=== PATIENT | female | born 1985 | race Caucasian/White ===

== ENCOUNTER 2018-03-05 05:43 | Emergency (ER) | payer SELFPAY ==
[2018-03-05] MEDS ORDERED: diphenhydrAMINE 50 MG/ML SDV IM ONE (06:12)
[2018-03-05] MEDS ORDERED: methylPREDNISolone Sodium Succinate 40 MG/1 ML SDV IM ONE (06:12)
--- NOTE | 2018-03-05 06:12 | EDM.PDOC ---
ED HPI GENERAL MEDICAL PROBLEM - General Chief Complaint: General Stated Complaint: ALERGIC REACTION Time Seen by Provider: 03/05/18 05:50 Source of Information: Reports: Patient History Limitations: Reports: No Limitations - History of Present Illness INITIAL COMMENTS - FREE TEXT/NARRATIVE: HISTORY AND PHYSICAL: History of present illness: 32-year-old female presenting to emergency department with chief complaint of lip and neck swelling that she believes is an allergic reaction starting last night. Patient states that last evening she noticed some swelling in her neck. Throughout the evening swelling got worse and involved her jaw as well as lower lip. Patient states that she was recently started on amoxicillin approximately 3 days ago. She has never had had a similar reaction in the past. She denies any respiratory distress. She is a smoker. Smokes half a pack a day for the past 8 years. Denies any chest pain, palpitations, shortness of breath, syncopal , or focal neurologic deficits. When questioned patient denies any allergy to a Z-Jay and states that she has had it multiple times. Exam there is mild swelling to the anterior aspect of the neck extending into the lower jawline. There is also swelling of the lower lip. No swelling of tongue. Posterior pharynx is mildly erythematous. There is expiratory wheezing heard in all lung [place]. Oxygen is 99% on room air. Review of systems: As per history of present illness and below otherwise all systems reviewed and negative. Past medical history: As per history of present illness and as reviewed below otherwise noncontributory. Surgical history: As per history of present illness and as reviewed below otherwise noncontributory. Social history: No reported history of drug or alcohol abuse. Family history: As per history of present illness and as reviewed below otherwise noncontributory. Physical exam: HEENT: Atraumatic, normocephalic, pupils reactive, negative for conjunctival pallor or scleral icterus, mucous membranes moist, mild posterior erythema of throat, neck supple mildly swollen and tender, trachea midline. Lungs: Expiratory wheezing, breath sounds equal bilaterally, chest nontender. Heart: S1S2, regular, negative for clicks, rubs, or JVD. Abdomen: Soft, nondistended, nontender. Negative for masses or hepatosplenomegaly. Negative for costovertebral tenderness. Pelvis: Stable nontender. Genitourinary: Deferred. Rectal: Deferred. Extremities: Atraumatic, negative for cords or calf pain. Neurovascular unremarkable. Neuro: Awake, alert, oriented. Cranial nerves II through XII unremarkable. Cerebellum unremarkable. Motor and sensory unremarkable throughout. Exam nonfocal. Diagnostics: [] Therapeutics: 50 mg IM diphenhydramine, 40 mg IM Solu-Medrol, DuoNeb 1, prednisone 40 mg by mouth daily 4 days, azithromycin/Z-Jay 5 days Impression: Allergic drug reaction Plan: Patient most likely had a allergic reaction to amoxicillin as she denies any other recent drug use or exposures. Did instruct patient to quit the amoxicillin. We did give her 50 mg of IM diphenhydramine as well as 40 mg IM Solu-Medrol. I did also give the patient a prescription for prednisone 40 mg by mouth daily 4 days as well as a Z-Jay to finish treatment of her strep. She should follow-up with her primary care provider and return to emergency department if any new or worsening symptoms. Definitive disposition and diagnosis as appropriate pending reevaluation and review of above. facial Pain Score (Numeric/FACES): 5 - Related Data Allergies Allergy/AdvReac Type Severity Reaction Status Date / Time azithromycin Allergy Cannot Verified 03/05/18 06:00 Remember Home Meds: Home Meds Amoxicillin 03/05/18 [History] Past Medical History - Infectious Disease History Infectious Disease History: Reports: Chicken Pox - Past Surgical History GI Surgical History: Reports: Cholecystectomy Social & Family History - Tobacco Use Smoking Status *Q: Current Every Day Smoker Years of Tobacco use: 8 Packs/Tins Daily: 0.5 - Alcohol Use Days Per Week of Alcohol Use: 7 Number of Drinks Per Day: 2 Total Drinks Per Week: 14 - Recreational Drug Use Recreational Drug Use: No ED ROS GENERAL - Review of Systems Review Of Systems: ROS reveals no pertinent complaints other than HPI. ED EXAM, GENERAL - Physical Exam Exam: See Below Course - Vital Signs Last Recorded V/S: Last Vital Signs Temp 96.3 F 03/05/18 06:01 Pulse 110 H 03/05/18 06:01 Resp 20 03/05/18 06:01 BP 128/95 H 03/05/18 06:01 Pulse Ox 99 03/05/18 06:01 - Orders/Labs/Meds Orders: Active Orders 24 hr Category Date Time Status RT Aerosol Therapy [RC] ASDIRECTED Care 03/05/18 06:14 Active Meds: Medications Discontinued Medications Generic Name Dose Route Start Last Admin Trade Name Ranulfo PRN Reason Stop Dose Admin Albuterol/Ipratropium 3 ml 03/05/18 06:14 Duoneb 3.0-0.5 Mg/3 Ml NEB 03/05/18 06:15 ONETIME ONE Diphenhydramine HCl 50 mg 03/05/18 06:12 03/05/18 06:21 Benadryl IM 03/05/18 06:13 50 mg ONETIME ONE Administration Methylprednisolone Sodium Succinate 40 mg 03/05/18 06:12 03/05/18 06:22 Solu-Medrol IM 03/05/18 06:13 40 mg ONETIME ONE Administration Departure - Departure Time of Disposition: 06:29 Disposition: Home, Self-Care 01 Condition: Good Clinical Impression: Allergic reaction caused by a drug Qualifiers: Encounter type: initial encounter Qualified Code(s): T78.40XA - Allergy, unspecified, initial encounter - Discharge Information Referrals: PCP,None [Primary Care Provider] - Forms: ED Department Discharge Additional Instructions: My general discharge The following information is given to patients seen in the emergency department who are being discharged to home. This information is to outline your options for follow-up care. We provide all patients seen in our emergency department with a follow-up referral. The need for follow-up, as well as the timing and circumstances, are variable depending upon the specifics of your emergency department visit. If you don't have a primary care physician on staff, we will provide you with a referral. We always advise you to contact your personal physician following an emergency department visit to inform them of the circumstance of the visit and for follow-up with them and/or the need for any referrals to a consulting specialist. The emergency department will also refer you to a specialist when appropriate. This referral assures that you have the opportunity for follow-up care with a specialist. All of these measure are taken in an effort to provide you with optimal care, which includes your follow-up. Under all circumstances we always encourage you to contact your private physician who remains a resource for coordinating your care. When calling for follow-up care, please make the office aware that this follow-up is from your recent emergency room visit. If for any reason you are refused follow-up, please contact the [facility] Emergency Department at and asked to speak to the emergency department charge nurse. [facility] [address] [place] [id number] [facility] - [facility] [address] [place] [phone] Please call 1 of the above numbers to follow-up with a primary care provider. Be sure to tell them that he was seen in the emergency department and they wish for you to be seen as soon as possible. Take medication as prescribed. Take [id number] Benadryl in addition to prednisone to help with your symptoms. Return to emergency department if any new or worsening symptoms. - My Orders Last 24 Hours: My Active Orders 03/05/18 06:14 RT Aerosol Therapy [RC] ASDIRECTED - Assessment/Plan Last 24 Hours: My Active Orders 03/05/18 06:14 RT Aerosol Therapy [RC] ASDIRECTED
[2018-03-05] MEDS ORDERED: Albuterol/Ipratropium 3.0-0.5 MG/3 ML Neb Soln NEB ONE (06:14)
== END 2018-03-05 06:50 | disposition home or self-care (01) ==
LOC: MW.ED 05:43
DX: R22.1 Localized swelling, mass and lump, neck (principal); T36.0X5A Adverse effect of penicillins, initial encounter; F17.210 Nicotine dependence, cigarettes, uncomplicated; Z88.1 Allergy status to other antibiotic agents
CPT/HCPCS: 94640; 96372; 99283; J1200; J2920; J7620-GY

== ENCOUNTER 2018-03-07 14:34 | Emergency (ER) | payer SELFPAY ==
--- NOTE | 2018-03-07 15:04 | EDM.PDOC ---
ED HPI GENERAL MEDICAL PROBLEM - General Chief Complaint: General Stated Complaint: BLISTERS SORE IN MOUTH Time Seen by Provider: 03/07/18 14:39 Source of Information: Reports: Patient History Limitations: Reports: No Limitations - History of Present Illness INITIAL COMMENTS - FREE TEXT/NARRATIVE: History of present illness: []3 days ago patient was cleaning with a irritating chemical and developed swelling of her lips and neck. She was eventually placed on amoxicillin for this and had allergic reaction with increasing rash and swelling. 2 days ago she would return here and was changed to Zithromax. She is now complaining of urinating air mixed with brown urine. Patient denies any difficulty swallowing. Shortness of breath, chest, abdominal or pelvic pain Review of systems: As per history of present illness and below otherwise all systems reviewed and negative. Past medical history: As per history of present illness and as reviewed below otherwise noncontributory. Surgical history: As per history of present illness and as reviewed below otherwise noncontributory. Social history: No reported history of drug or alcohol abuse. Family history: As per history of present illness and as reviewed below otherwise noncontributory. Physical exam: General: Well developed, well nourished in NAD HEENT: Atraumatic, normocephalic, pupils reactive, negative for conjunctival pallor or scleral icterus, mucous membranes moist, throat clear, neck supple, nontender, trachea midline. Lungs: Clear to auscultation, breath sounds equal bilaterally, chest nontender. Heart: S1S2, regular, negative for clicks, rubs, or JVD. Abdomen: Soft, nondistended, nontender. Negative for masses or hepatosplenomegaly. Negative for costovertebral tenderness. Pelvis: Stable nontender. Genitourinary: Deferred. Rectal: Deferred. Extremities: Atraumatic, negative for cords or calf pain. Neurovascular unremarkable. Neuro: Awake, alert, oriented. Cranial nerves II through XII unremarkable. Cerebellum unremarkable. Motor and sensory unremarkable throughout. Exam nonfocal. Skin:warm and dry Diagnostics: CBC, chemistry, urine Therapeutics: IV fluids, IV Rocephin ED Course: Unremarkable Impression: UTI Prescriptions: Keflex Plan: Increase fluids take meds as directed follow-up with primary care return if symptoms worsen or change. Definitive disposition and diagnosis as appropriate pending reevaluation and review of above. body Pain Score (Numeric/FACES): 7 - Related Data Allergies Allergy/AdvReac Type Severity Reaction Status Date / Time clarithromycin [From Biaxin] Allergy Rash Verified 03/07/18 14:46 erythromycin base Allergy Cannot Verified 03/07/18 14:46 Remember Home Meds: Home Meds Azithromycin [Zithromax] 1 tab PO DAILY 03/07/18 [History] cephALEXin [Keflex] 500 mg PO Q8H #21 cap 03/07/18 [Rx] Past Medical History - Past Health History Medical/Surgical History: Denies Medical/Surgical History - Infectious Disease History Infectious Disease History: Reports: Chicken Pox - Past Surgical History GI Surgical History: Reports: Cholecystectomy Social & Family History - Family History Family Medical History: Noncontributory - Tobacco Use Smoking Status *Q: Current Every Day Smoker Years of Tobacco use: 8 Packs/Tins Daily: 0.5 - Caffeine Use Caffeine Use: Reports: Coffee, Energy Drinks, Soda, Tea - Alcohol Use Days Per Week of Alcohol Use: 3 Number of Drinks Per Day: 2 Total Drinks Per Week: 6 - Recreational Drug Use Recreational Drug Use: No ED ROS GENERAL - Review of Systems Review Of Systems: ROS reveals no pertinent complaints other than HPI. ED EXAM, GENERAL - Physical Exam Exam: See Below (See history of present illness) Course - Vital Signs Last Recorded V/S: Last Vital Signs Temp 98.3 F 03/07/18 14:41 Pulse 106 H 03/07/18 14:41 Resp 16 03/07/18 14:41 BP 131/107 H 03/07/18 14:41 Pulse Ox 96 03/07/18 14:41 - Orders/Labs/Meds Orders: Active Orders 24 hr Category Date Time Status CULTURE URINE [RM] Stat Lab 03/07/18 16:13 Ordered Sodium Chloride 0.9% [Saline Flush] Med 03/07/18 15:07 Active 10 ml FLUSH ASDIRECTED PRN Sodium Chloride 0.9% [Saline Flush] Med 03/07/18 15:07 Active 2.5 ml FLUSH ASDIRECTED PRN Saline Lock Insert [OM.PC] Stat Oth 03/07/18 15:07 Ordered Medication Orders Sodium Chloride (Saline Flush) 10 ml FLUSH ASDIRECTED PRN PRN Reason: Keep Vein Open Sodium Chloride (Saline Flush) 2.5 ml FLUSH ASDIRECTED PRN PRN Reason: Keep Vein Open Labs: Laboratory Tests 03/07/18 03/07/18 03/07/18 Range/Units 15:05 15:25 15:25 WBC 12.25 H (4.0-11.0) K/uL RBC 4.20 L (4.30-5.90) M/uL Hgb 13.3 (12.0-16.0) g/dL Hct 39.6 (36.0-46.0) % MCV 94.3 (80.0-98.0) fL MCH 31.7 (27.0-32.0) pg MCHC 33.6 (31.0-37.0) g/dL RDW Std Deviation 52.1 (28.0-62.0) fl RDW Coeff of Isaac 15 (11.0-15.0) % Plt Count 181 (150-400) K/uL MPV 10.40 (7.40-12.00) fL Neut % (Auto) 81.6 H (48.0-80.0) % Lymph % (Auto) 13.7 L (16.0-40.0) % [place] % (Auto) 4.4 (0.0-15.0) % Eos % (Auto) 0.2 (0.0-7.0) % Baso % (Auto) 0.1 (0.0-1.5) % Neut # (Auto) 10.0 H (1.4-5.7) K/uL Lymph # (Auto) 1.7 (0.6-2.4) K/uL [place] # (Auto) 0.5 (0.0-0.8) K/uL Eos # (Auto) 0.0 (0.0-0.7) K/uL Baso # (Auto) 0.0 (0.0-0.1) K/uL Nucleated RBC % 0.0 /100WBC Nucleated RBCs # 0 K/uL Sodium 141 (136-145) mmol/L Potassium 3.1 L (3.5-5.1) mmol/L Chloride 104 (98-107) mmol/L Carbon Dioxide 29.0 (21.0-32.0) mmol/L BUN 12 (7.0-18.0) mg/dL Creatinine 0.7 (0.6-1.0) mg/dL Est Cr Clr Drug Dosing 92.10 mL/min Estimated GFR (MDRD) > 60.0 ml/min Glucose 101 (74-106) mg/dL Calcium 8.6 (8.5-10.1) mg/dL Total Bilirubin 0.4 (0.2-1.0) mg/dL AST 16 (15-37) IU/L ALT 15 (14-63) IU/L Alkaline Phosphatase 98 (46-116) U/L Total Protein 7.1 (6.4-8.2) g/dL Albumin 3.5 (3.4-5.0) g/dL Globulin 3.6 H (2.0-3.5) g/dL Albumin/Globulin Ratio 1.0 L (1.3-2.8) Urine Color DARK YELLOW Urine Appearance CLOUDY Urine pH 6.0 (5.0-8.0) Ur Specific [place] >= 1.030 (1.001-1.035) Urine Protein 100 (NEGATIVE) mg/dL Urine Glucose (UA) NEGATIVE (NEGATIVE) mg/dL Urine Ketones TRACE H (NEGATIVE) mg/dL Urine Occult Blood LARGE H (NEGATIVE) Urine Nitrite POSITIVE H (NEGATIVE) Urine Bilirubin MODERATE H (NEGATIVE) Urine Ictotest NEGATIVE Urine Urobilinogen 1.0 (<2.0) EU/dL Ur Leukocyte Esterase SMALL (NEGATIVE) Urine RBC TOO NUMEROUS TO CT H (0-2/HPF) Urine WBC 25-35 (0-5/HPF) Ur Epithelial Cells FEW (NONE-FEW) Amorphous Sediment FEW (NEGATIVE) Urine Bacteria FEW (NEGATIVE) Meds: Medications Generic Name Dose Route Start Last Admin Trade Name Freq PRN Reason Stop Dose Admin Sodium Chloride 10 ml 03/07/18 15:07 Saline Flush FLUSH ASDIRECTED PRN Keep Vein Open Sodium Chloride 2.5 ml 03/07/18 15:07 Saline Flush FLUSH ASDIRECTED PRN Keep Vein Open Discontinued Medications Generic Name Dose Route Start Last Admin Trade Name Freq PRN Reason Stop Dose Admin Sodium Chloride 1,000 mls @ 999 mls/hr 03/07/18 15:07 03/07/18 15:46 Normal Saline IV 03/07/18 16:07 999 mls/hr .Bolus ONE Administration Ceftriaxone Sodium/Dextrose 1 50 mls @ 100 mls/hr 03/07/18 15:36 03/07/18 15: 46 gm/ Premix IV 03/07/18 16:05 100 mls/hr ONETIME ONE Administration Ketorolac Tromethamine 30 mg 03/07/18 15:36 03/07/18 15:46 Toradol IVPUSH 03/07/18 15:37 30 mg ONETIME ONE Administration Departure - Departure Time of Disposition: 16:14 Disposition: Home, Self-Care 01 Condition: Good Clinical Impression: UTI (urinary tract infection) Qualifiers: Urinary tract infection type: site unspecified Hematuria presence: with hematuria Qualified Code(s): N39.0 - Urinary tract infection, site not specified ; R31.9 - Hematuria, unspecified - Discharge Information *PRESCRIPTION DRUG MONITORING PROGRAM REVIEWED*: No *COPY OF PRESCRIPTION DRUG MONITORING REPORT IN PATIENT DRE: No Prescriptions: cephALEXin [Keflex] 500 mg PO Q8H #21 cap Referrals: PCP,None [Primary Care Provider] - Forms: ED Department Discharge Additional Instructions: The following information is given to patients seen in the emergency department who are being discharged to home. This information is to outline your options for follow-up care. We provide all patients seen in our emergency department with a follow-up referral. The need for follow-up, as well as the timing and circumstances, are variable depending upon the specifics of your emergency department visit. If you don't have a primary care physician on staff, we will provide you with a referral. We always advise you to contact your personal physician following an emergency department visit to inform them of the circumstance of the visit and for follow-up with them and/or the need for any referrals to a consulting specialist. The emergency department will also refer you to a specialist when appropriate. This referral assures that you have the opportunity for follow-up care with a specialist. All of these measure are taken in an effort to provide you with optimal care, which includes your follow-up. Under all circumstances we always encourage you to contact your private physician who remains a resource for coordinating your care. When calling for follow-up care, please make the office aware that this follow-up is from your recent emergency room visit. If for any reason you are refused follow-up, please contact the [facility] Emergency Department at and asked to speak to the emergency department charge nurse. Increase fluids take meds as directed follow-up primary care ibuprofen or Tylenol for pain return if symptoms worsen or change. [facility] [address] [place] [id number] - My Orders Last 24 Hours: My Active Orders 03/07/18 15:07 Sodium Chloride 0.9% [Saline Flush] 10 ml FLUSH ASDIRECTED PRN Sodium Chloride 0.9% [Saline Flush] 2.5 ml FLUSH ASDIRECTED PRN Saline Lock Insert [OM.PC] Stat 03/07/18 16:13 CULTURE URINE [RM] Stat - Assessment/Plan Last 24 Hours: My Active Orders 03/07/18 15:07 Sodium Chloride 0.9% [Saline Flush] 10 ml FLUSH ASDIRECTED PRN Sodium Chloride 0.9% [Saline Flush] 2.5 ml FLUSH ASDIRECTED PRN Saline Lock Insert [OM.PC] Stat 03/07/18 16:13 CULTURE URINE [RM] Stat
[2018-03-07] MEDS ORDERED: Sodium Chloride 0.9% 10 ML Syringe FLUSH PRN (15:07)
[2018-03-07] MEDS ORDERED: Sodium Chloride 0.9% 1,000 ML IV ONE (15:07)
[2018-03-07] MEDS ORDERED: Sodium Chloride 0.9% 2.5 ML Syringe FLUSH PRN (15:07)
[2018-03-07] MEDS ORDERED: cefTRIAXone 1 GM in Premix Bag 1 BAG IV ONE (15:36)
[2018-03-07] MEDS ORDERED: Ketorolac 30 MG/ML SDV IVPUSH ONE (15:36)
[2018-03-07 16:08] LABS: CHLORIDE,CL 104 mmol/L (98-107); SODIUM,NA 141 mmol/L (136-145)
== END 2018-03-07 17:00 | disposition home or self-care (01) ==
LOC: MW.ED 14:34
DX: N39.0 Urinary tract infection, site not specified (principal); F17.210 Nicotine dependence, cigarettes, uncomplicated; Z88.1 Allergy status to other antibiotic agents
CPT/HCPCS: 80053; 81001; 85025; 87086; 96365; 96375; 99283; J0696; J1885; J7040; 87088; 87186

== ENCOUNTER 2018-11-10 11:09 | Emergency (ER) | payer SELFPAY ==
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
[2018-11-10] MEDS ORDERED: Ketorolac 60 MG/2 ML SDV IM ONE (11:30)
--- NOTE | 2018-11-10 12:18 | CR ---
INDICATION: Injury and pain. TECHNIQUE: Chest 1 view COMPARISON: None FINDINGS: Cardiovascular and mediastinum: Heart size and vasculature are normal in caliber and appearance. Lungs and pleural spaces: Lungs are clear. No sign of infiltrate or mass. No sign of pleural effusion. No pneumothorax. Bones and soft tissues: No significant findings. IMPRESSION: No acute or significant findings. Dictated by Junior Wright MD @ Nov 10 2018 12:15PM Signed by Dr. Junior Wright @ Nov 10 2018 12:15PM
--- NOTE | 2018-11-10 12:18 | CR ---
INDICATION: Injury and pain TECHNIQUE: Cervical spine 3 view. COMPARISON: None FINDINGS: Bones: Cervical spine kyphosis is likely due to positioning. Alignment is otherwise normal. No fractures or significant bone lesions. Joints: Disc spaces and facets are unremarkable. Soft tissues: Unremarkable. IMPRESSION: Unremarkable cervical spine. Dictated by Junior Wright MD @ Nov 10 2018 12:15PM Signed by Dr. Junior Wright @ Nov 10 2018 12:16PM
== END 2018-11-10 12:30 | disposition home or self-care (01) ==
LOC: MW.ED 11:09
DX: T74.21XA Adult sexual abuse, confirmed, initial encounter (principal); Z88.1 Allergy status to other antibiotic agents; Z79.899 Other long term (current) drug therapy
CPT/HCPCS: 71045; 72040; 96372; 99284; J1885

== ENCOUNTER 2018-12-07 23:45 | Emergency (ER) | payer SELFPAY ==
[2018-12-08] MEDS ORDERED: HYDROmorphone 2 MG/ML Syringe ONE (00:03)
[2018-12-08] MEDS ORDERED: cefTRIAXone 1 GM in Premix Bag 1 BAG IV ONE (00:04)
[2018-12-08] MEDS ORDERED: Diphtheria,Pertussis(Acell),Tetanus Vaccine 0.5 ML Syringe IM ONE (00:04)
[2018-12-08] MEDS ORDERED: HYDROmorphone 1 MG/ML Syringe IVPUSH ONE (00:07)
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
[2018-12-08] MEDS ORDERED: fentaNYL 100 MCG/2 ML SDV IVPUSH ONE (00:14)
[2018-12-08] MEDS ORDERED: fentaNYL 100 MCG/2 ML SDV ONE (00:14)
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
[2018-12-08 00:45] LABS: CHLORIDE,CL 111 mmol/L (98-107); SODIUM,NA 144 mmol/L (136-145)
== END 2018-12-08 00:32 ==
LOC: MW.ED 23:45
DX: S72.301B Unspecified fracture of shaft of right femur, initial encounter for open fracture type I or II (principal); Z23 Encounter for immunization; Z88.1 Allergy status to other antibiotic agents; W22.8XXA Striking against or struck by other objects, initial encounter
CPT/HCPCS: 36415; 80053; 85025; 85610; 86850; 86900; 86901; 90471; 96365; 96375; 99291; G0480

== ENCOUNTER 2019-01-12 19:35 | Emergency (ER) | payer SELFPAY ==
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
[2019-01-12] MEDS ORDERED: Acetaminophen/oxyCODONE 325-7.5 MG Tab PO ONE (20:00)
[2019-01-12] MEDS ORDERED: Acetaminophen/oxyCODONE 325-10 MG Tab PO ONE (20:23)
== END 2019-01-12 20:30 | disposition home or self-care (01) ==
LOC: MW.ED 19:35
DX: Z76.0 Encounter for issue of repeat prescription (principal); F41.9 Anxiety disorder, unspecified; Z88.1 Allergy status to other antibiotic agents; Z79.811 Long term (current) use of aromatase inhibitors; Z79.899 Other long term (current) drug therapy
CPT/HCPCS: 99281; A9270

== ENCOUNTER 2019-04-04 18:11 | Emergency (ER) | payer SELFPAY ==
--- NOTE | 2019-04-04 19:30 | EDM.PDOC ---
ED HPI GENERAL MEDICAL PROBLEM - General Chief Complaint: Skin Complaint Stated Complaint: believes she may have been exposed to mrsa Time Seen by Provider: 04/04/19 18:37 Source of Information: Reports: Patient History Limitations: Reports: No Limitations - History of Present Illness INITIAL COMMENTS - FREE TEXT/NARRATIVE: HISTORY AND PHYSICAL: History of present illness: Patient is a 33-year-old female presents to the ED today with concern of generalized rash 2-3 days. Patient states the rash initially started as small spots on her forearms but now has spread to her lower extremities as well as her abdomen. Patient states the rash is itchy and she has tried putting topical Benadryl on the rash without relief of symptoms. Patient denies any other symptoms or concerns. Patient denies fever, chills, chest pain, shortness of breath, or cough. Denies headache, neck stiff ness, change in vision, syncope, or near syncope. Denies nausea, vomiting, abdominal pain, diarrhea, constipation, or dysuria. Has not noted any blood in urine or stool. Patient has been eating and drinking appropriately. Review of systems: As per history of present illness and below otherwise all systems reviewed and negative. Past medical history: As per history of present illness and as reviewed below otherwise noncontributory. Surgical history: As per history of present illness and as reviewed below otherwise noncontributory. Social history: See social history for further information Family history: As per history of present illness and as reviewed below otherwise noncontributory. Physical exam: General: Patient is alert, oriented, and in no acute distress. Patient sitting comfortably on exam table. HEENT: Atraumatic, normocephalic, pupils equal and reactive bilaterally, negative for conjunctival pallor or scleral icterus, mucous membranes moist, TMs normal bilaterally, throat clear, neck supple, nontender, trachea midline. No drooling or trismus noted. No meningeal signs. No hot potato voice noted. Lungs: Clear to auscultation, breath sounds equal bilaterally, chest nontender. Heart: S1S2, regular rate and rhythm without overt murmur Abdomen: Soft, nondistended, nontender. Negative for masses or hepatosplenomegaly. Negative for costovertebral tenderness. Pelvis: Stable nontender. Genitourinary: Deferred. Rectal: Deferred. Skin: Intact, warm, dry. No lesions. There is a nonspecific dry circular patchy and scaly macular rash of the upper and lower extremities Extremities: Atraumatic, negative for cords or calf pain. Neurovascular unremarkable. Scarring consistent with surgical history. Neuro: Awake, alert, oriented. Cranial nerves II through XII unremarkable. Cerebellum unremarkable. Motor and sensory unremarkable throughout. Exam nonfocal. Notes: Dr. Arndt directly involved in patient care. Discussed the importance for follow-up with a primary care provider. Voices understanding and is agreeable to plan of care. Denies any further questions or concerns at this time. Diagnostics: CBC, CMP, INR Therapeutics: None Prescription: Medrol dose pack Impression: Dermatitis, etiology unspecified Plan: 1. Take medication as prescribed. You can alternate ibuprofen and Tylenol as directed for pain and discomfort. 2. While symptomatic continue to routinely take Benadryl 3. You may use topical calamine lotion, cool tempid oatmeal baths, Aveeno bath/ lotions. 4. Please follow up with your Primary care provider as discussed. Return to the ED as needed and as discussed. Definitive disposition and diagnosis as appropriate pending reevaluation and review of above. 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: Musculoskeletal History: Reports: Other (See Below) Other Musculoskeletal History: Fx R leg Psychiatric History: Reports: Anxiety, PTSD Dermatologic History: Reports: None - Infectious Disease History Infectious Disease History: Reports: Chicken Pox - Past Surgical History GI Surgical History: Reports: Cholecystectomy Female Surgical History: Reports: Section Musculoskeletal Surgical History: Reports: Other (See Below) Other Musculoskeletal Surgeries/Procedures:: left rib; R leg Dermatological Surgical History: Reports: Skin Graft Social & Family History - Family History Family Medical History: Noncontributory - Tobacco Use Smoking Status *Q: Current Every Day Smoker Years of Tobacco use: 10 Packs/Tins Daily: 0.5 - Caffeine Use Caffeine Use: Reports: Coffee - Recreational Drug Use Recreational Drug Use: No ED ROS GENERAL - Review of Systems Review Of Systems: ROS reveals no pertinent complaints other than HPI. ED EXAM, SKIN/RASH Exam: See Below (See dictation) Course - Vital Signs Last Recorded V/S: Last Vital Signs Temp 97.1 F 04/04/19 19:49 Pulse 102 H 04/04/19 19:49 Resp 20 04/04/19 19:49 BP 149/102 H 04/04/19 19:49 Pulse Ox 99 04/04/19 19:49 - Orders/Labs/Meds Labs: Laboratory Tests 04/04/19 04/04/19 04/04/19 Range/Units 19:05 19:05 19:05 WBC 7.23 (4.0-11.0) K/uL RBC 4.57 (4.30-5.90) M/uL Hgb 11.7 L (12.0-16.0) g/dL Hct 37.2 (36.0-46.0) % MCV 81.4 (80.0-98.0) fL MCH 25.6 L (27.0-32.0) pg MCHC 31.5 (31.0-37.0) g/dL RDW Std Deviation 57.1 (28.0-62.0) fl RDW Coeff of Isaac 19 H (11.0-15.0) % Plt Count 261 (150-400) K/uL MPV 9.20 (7.40-12.00) fL Neut % (Auto) 59.3 (48.0-80.0) % Lymph % (Auto) 30.8 (16.0-40.0) % Briscoe % (Auto) 9.0 (0.0-15.0) % Eos % (Auto) 0.8 (0.0-7.0) % Baso % (Auto) 0.1 (0.0-1.5) % Neut # (Auto) 4.3 (1.4-5.7) K/uL Lymph # (Auto) 2.2 (0.6-2.4) K/uL Briscoe # (Auto) 0.7 (0.0-0.8) K/uL Eos # (Auto) 0.1 (0.0-0.7) K/uL Baso # (Auto) 0.0 (0.0-0.1) K/uL Nucleated RBC % 0.0 /100WBC Nucleated RBCs # 0 K/uL INR 0.96 Sodium 140 (136-145) mmol/L Potassium 3.6 (3.5-5.1) mmol/L Chloride 102 (98-107) mmol/L Carbon Dioxide 26.8 (21.0-32.0) mmol/L BUN 13 (7.0-18.0) mg/dL Creatinine 0.8 (0.6-1.0) mg/dL Est Cr Clr Drug Dosing 83.51 mL/min Estimated GFR (MDRD) > 60.0 ml/min Glucose 85 (74-106) mg/dL Calcium 9.1 (8.5-10.1) mg/dL Total Bilirubin 0.1 L (0.2-1.0) mg/dL AST 23 (15-37) IU/L ALT 20 (14-63) IU/L Alkaline Phosphatase 173 H (46-116) U/L Total Protein 8.7 H (6.4-8.2) g/dL Albumin 3.9 (3.4-5.0) g/dL Globulin 4.8 H (2.6-4.0) g/dL Albumin/Globulin Ratio 0.8 L (0.9-1.6) Departure - Departure Time of Disposition: 20:00 Disposition: Home, Self-Care 01 Clinical Impression: Dermatitis - Discharge Information Referrals: PCP,None [Primary Care Provider] - Forms: ED Department Discharge Additional Instructions: The following information is given to patients seen in the emergency department who are being discharged to home. This information is to outline your options for follow-up care. We provide all patients seen in our emergency department with a follow-up referral. The need for follow-up, as well as the timing and circumstances, are variable depending upon the specifics of your emergency department visit. If you don't have a primary care physician on staff, we will provide you with a referral. We always advise you to contact your personal physician following an emergency department visit to inform them of the circumstance of the visit and for follow-up with them and/or the need for any referrals to a consulting specialist. The emergency department will also refer you to a specialist when appropriate. This referral assures that you have the opportunity for follow-up care with a specialist. All of these measure are taken in an effort to provide you with optimal care, which includes your follow-up. Under all circumstances we always encourage you to contact your private physician who remains a resource for coordinating your care. When calling for follow-up care, please make the office aware that this follow-up is from your recent emergency room visit. If for any reason you are refused follow-up, please contact the [facility] Emergency Department at and asked to speak to the emergency department charge nurse. [facility] [address] [place] [id number] [address] 1. Take medication as prescribed. You can alternate ibuprofen and Tylenol as directed for pain and discomfort. 2. While symptomatic continue to routinely take Benadryl 3. You may use topical calamine lotion, cool tempid oatmeal baths, Aveeno bath/ lotions. 4. Please follow up with your Primary care provider as discussed. Return to the ED as needed and as discussed.
[2019-04-04 19:49] LABS: BLOOD UREA NITROGEN,BUN 13 mg/dL (7.0-18.0); CARBON DIOXIDE,CO2 26.8 mmol/L (21.0-32.0); CHLORIDE,CL 102 mmol/L (98-107); GLUCOSE RANDOM 85 mg/dL (74-106); POTASSIUM,K 3.6 mmol/L (3.5-5.1); SODIUM,NA 140 mmol/L (136-145)
== END 2019-04-04 20:05 | disposition home or self-care (01) ==
LOC: MW.ED 18:11
DX: L30.9 Dermatitis, unspecified (principal); F41.9 Anxiety disorder, unspecified; F17.210 Nicotine dependence, cigarettes, uncomplicated; Z88.1 Allergy status to other antibiotic agents; Z79.899 Other long term (current) drug therapy
CPT/HCPCS: 36415; 80053; 85025; 85610; 99283

== ENCOUNTER 2019-04-28 10:23 | Emergency (ER) | payer SELFPAY ==
[2019-04-28] MEDS ORDERED: Sodium Chloride 0.9% 2.5 ML Syringe FLUSH PRN (10:37)
[2019-04-28] MEDS ORDERED: Sodium Chloride 0.9% 10 ML Syringe FLUSH PRN (10:37)
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
[2019-04-28 11:21] LABS: BLOOD UREA NITROGEN,BUN 13 mg/dL (7.0-18.0); CARBON DIOXIDE,CO2 29.9 mmol/L (21.0-32.0); CHLORIDE,CL 104 mmol/L (98-107); GLUCOSE RANDOM 92 mg/dL (74-106); POTASSIUM,K 3.7 mmol/L (3.5-5.1); SODIUM,NA 141 mmol/L (136-145)
[2019-04-28] MEDS ORDERED: Sodium Chloride 0.9% 1,000 ML IV ONE (11:53)
[2019-04-28 13:04] LABS: ACETAMINOPHEN <2.0 ug/mL
== END 2019-04-28 14:12 | disposition home or self-care (01) ==
LOC: MW.ED 10:23
DX: F19.90 Other psychoactive substance use, unspecified, uncomplicated (principal); R42 Dizziness and giddiness; N39.0 Urinary tract infection, site not specified; F41.9 Anxiety disorder, unspecified; Z88.0 Allergy status to penicillin; Z88.1 Allergy status to other antibiotic agents
CPT/HCPCS: 36415; 80053; 80305; 80320; 80329; 81001; 81025; 85025; 87086; 87088; 87186; 93005; 99284; J7040; G0480

== ENCOUNTER 2019-05-20 06:58 | Emergency (ER) | payer SELFPAY ==
--- NOTE | 2019-05-20 07:35 | EDM.PDOC ---
ED HPI GENERAL MEDICAL PROBLEM - General Chief Complaint: General Stated Complaint: MED. CLEARANCE Time Seen by Provider: 05/20/19 07:30 Source of Information: Reports: Patient - History of Present Illness INITIAL COMMENTS - FREE TEXT/NARRATIVE: HISTORY AND PHYSICAL: History of present illness: [Presents under arrest for methamphetamine use, she has chronic medications for depression otherwise she was arrested at home denies any injury or trauma no fever nausea vomiting chills sweats no chest pain shortness breath headache dizziness palpitation no bowel or urine symptoms ] Review of systems: As per history of present illness and below otherwise all systems reviewed and negative. Past medical history: As per history of present illness and as reviewed below otherwise noncontributory. Surgical history: As per history of present illness and as reviewed below otherwise noncontributory. Social history: No reported history of drug or alcohol abuse. Family history: As per history of present illness and as reviewed below otherwise noncontributory. Physical exam: HEENT: Atraumatic, normocephalic, pupils reactive, negative for conjunctival pallor or scleral icterus, mucous membranes moist, throat clear, neck supple, nontender, trachea midline. Lungs: Clear to auscultation, breath sounds equal bilaterally, chest nontender. Heart: S1S2, regular, negative for clicks, rubs, or JVD. Abdomen: Soft, nondistended, nontender. Negative for masses or hepatosplenomegaly. Negative for costovertebral tenderness. Pelvis: Stable nontender. Genitourinary: Deferred. Rectal: Deferred. Extremities: Atraumatic, negative for cords or calf pain. Neurovascular unremarkable. Neuro: Awake, alert, oriented. Cranial nerves II through XII unremarkable. Cerebellum unremarkable. Motor and sensory unremarkable throughout. Exam nonfocal. Diagnostics: [] Therapeutics: Medication as listed ] Impression: screening exam Definitive disposition and diagnosis as appropriate pending reevaluation and review of above. - Related Data Allergies Allergy/AdvReac Type Severity Reaction Status Date / Time amoxicillin Allergy Other Verified 05/20/19 07:12 azithromycin [From Zithromax] Allergy Other Verified 05/20/19 07:12 erythromycin base Allergy Rash Verified 05/20/19 07:12 Home Meds: Home Meds busPIRone [Buspar] 0 mg PO DAILY 12/08/18 [History] ARIPiprazole [Abilify Maintena] 0 mg IM ASDIRECTED 04/04/19 [History] Gabapentin [Neurontin] 0 mg PO TID 04/04/19 [History] Citalopram Hydrobromide [Celexa] 10 mg PO DAILY 04/28/19 [History] Nitrofurantoin Monohyd/M-Cryst [Macrobid 100 mg Capsule] 100 mg PO BID 7 Days # 14 capsule 04/28/19 [Rx] Past Medical History - Past Health History Medical/Surgical History: Denies Medical/Surgical History Gastrointestinal History: Reports: None Genitourinary History: Reports: None [employer]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: Musculoskeletal History: Reports: Other (See Below) Other Musculoskeletal History: Fx R leg Psychiatric History: Reports: Anxiety, PTSD Dermatologic History: Reports: None - Infectious Disease History Infectious Disease History: Reports: Chicken Pox - Past Surgical History GI Surgical History: Reports: Cholecystectomy Female Surgical History: Reports: Section Musculoskeletal Surgical History: Reports: Other (See Below) Other Musculoskeletal Surgeries/Procedures:: left rib; R leg Dermatological Surgical History: Reports: Skin Graft Social & Family History - Family History Family Medical History: Noncontributory - Tobacco Use Smoking Status *Q: Current Every Day Smoker Years of Tobacco use: 10 Packs/Tins Daily: 1 - Caffeine Use Caffeine Use: Reports: Coffee - Recreational Drug Use Recreational Drug Use: Yes Drug Use in Last 12 Months: Yes Recreational Drug Type: Reports: Methamphetamine ED ROS GENERAL - Review of Systems Review Of Systems: See Below ED EXAM, GENERAL - Physical Exam Exam: See Below Course - Vital Signs Last Recorded V/S: Last Vital Signs Temp 97.4 F 05/20/19 07:10 Pulse 90 05/20/19 07:10 Resp 20 05/20/19 07:10 BP 138/104 H 05/20/19 07:10 Pulse Ox 98 05/20/19 07:10 Departure - Departure Time of Disposition: 07:34 Disposition: Home, Self-Care 01 Condition: Good Clinical Impression: Encounter for medical screening examination - Discharge Information Referrals: PCP,None [Primary Care Provider] - Additional Instructions: The following information is given to patients seen in the emergency department who are being discharged to home. This information is to outline your options for follow-up care. We provide all patients seen in our emergency department with a follow-up referral. The need for follow-up, as well as the timing and circumstances, are variable depending upon the specifics of your emergency department visit. If you don't have a primary care physician on staff, we will provide you with a referral. We always advise you to contact your personal physician following an emergency department visit to inform them of the circumstance of the visit and for follow-up with them and/or the need for any referrals to a consulting specialist. The emergency department will also refer you to a specialist when appropriate. This referral assures that you have the opportunity for follow-up care with a specialist. All of these measure are taken in an effort to provide you with optimal care, which includes your follow-up. Under all circumstances we always encourage you to contact your private physician who remains a resource for coordinating your care. When calling for follow-up care, please make the office aware that this follow-up is from your recent emergency room visit. If for any reason you are refused follow-up, please contact the [facility] emergency department at and asked to speak to the emergency department charge nurse. Sepsis Event Note - Evaluation Sepsis Screening Result: No Definite Risk - Focused Exam Vital Signs: Vital Signs Temp Pulse Resp BP Pulse Ox 05/20/19 07:10 97.4 F 90 20 138/104 H 98 Date Exam was Performed: 05/20/19 Time Exam was Performed: 07:30
== END 2019-05-20 07:47 | disposition home or self-care (01) ==
LOC: MW.ED 06:58
DX: Z13.9 Encounter for screening, unspecified (principal); F41.9 Anxiety disorder, unspecified; F17.210 Nicotine dependence, cigarettes, uncomplicated; Z88.1 Allergy status to other antibiotic agents; Z79.899 Other long term (current) drug therapy
CPT/HCPCS: 99282

== ENCOUNTER 2019-07-01 16:15 | Emergency (ER) | payer MEDICAID, OTHER ==
[2019-07-01] MEDS ORDERED: Sodium Chloride 0.9% 1,000 ML IV ONE (17:20)
[2019-07-01] MEDS ORDERED: Ketorolac 30 MG/ML SDV IVPUSH ONE (17:20)
--- NOTE | 2019-07-01 17:54 | EDM.PDOC ---
ED HPI GENERAL MEDICAL PROBLEM - General Chief Complaint: Genitourinary Problem Stated Complaint: KIDNEY STONE Time Seen by Provider: 07/01/19 16:21 Source of Information: Reports: Patient History Limitations: Reports: No Limitations - History of Present Illness INITIAL COMMENTS - FREE TEXT/NARRATIVE: HISTORY AND PHYSICAL: History of present illness: Patient is a 33-year-old female who presents to the ED today with concern of low back pain and burning with urination since yesterday. Patient states she does have a history of urinary tract infections in the past and feels as if she has had some burning with urination. Patient states she is also had a few episodes of vomiting today. Patient states she has been taking cranberry supplements as well as took 1 Keflex pill that she had extra. Patient states she has a history of cholecystectomy but denies any other health history. Patient denies fever, chills, chest pain, shortness of breath, or cough. Denies headache, neck stiff ness, change in vision, syncope, or near syncope. Denies diarrhea, constipation. Has not noted any blood in urine or stool. Review of systems: As per history of present illness and below otherwise all systems reviewed and negative. Past medical history: As per history of present illness and as reviewed below otherwise noncontributory. Surgical history: As per history of present illness and as reviewed below otherwise noncontributory. Social history: See social history for further information Family history: As per history of present illness and as reviewed below otherwise noncontributory. Physical exam: General: Patient is alert, oriented, and in no acute distress. Patient sitting comfortably on exam table. HEENT: Atraumatic, normocephalic, pupils equal and reactive bilaterally, negative for conjunctival pallor or scleral icterus, mucous membranes moist, TMs normal bilaterally, throat clear, neck supple, nontender, trachea midline. No drooling or trismus noted. No meningeal signs. No hot potato voice noted. Lungs: Clear to auscultation, breath sounds equal bilaterally, chest nontender. Heart: S1S2, regular rate and rhythm without overt murmur Abdomen: Soft, nondistended, nontender. Negative for masses or hepatosplenomegaly. Positive for costovertebral tenderness of the right. Pelvis: Stable nontender. Genitourinary: Deferred. Rectal: Deferred. Skin: Intact, warm, dry. No lesions or rashes noted. Extremities: Atraumatic, negative for cords or calf pain. Neurovascular unremarkable. Neuro: Awake, alert, oriented. Cranial nerves II through XII unremarkable. Cerebellum unremarkable. Motor and sensory unremarkable throughout. Exam nonfocal. Notes: Dr. Hernandez, [facility], consulted on patient and accepting of transfer. Voices understanding and is agreeable to plan of care. Denies any further questions or concerns at this time. Diagnostics: CBC, CMP, UA, uhcg, lipase, Abd/Pelvic CT, EKG Therapeutics: NS, Toradol, Rocephin, Morphine, Zofran Impression: Acute renal failure Urinary tract infection Plan: Transfer to Dr. Hernandez via EMS to [facility]. Definitive disposition and diagnosis as appropriate pending reevaluation and review of above. Bilateral Lower Back Pain Score (Numeric/FACES): 6 - Related Data Allergies Allergy/AdvReac Type Severity Reaction Status Date / Time amoxicillin Allergy Other Verified 07/01/19 16:28 azithromycin [From Zithromax] Allergy Other Verified 07/01/19 16:28 erythromycin base Allergy Rash Verified 07/01/19 16:28 Home Meds: Home Meds busPIRone [Buspar] 0 mg PO DAILY 12/08/18 [History] ARIPiprazole [Abilify Maintena] 0 mg IM ASDIRECTED 04/04/19 [History] Gabapentin [Neurontin] 0 mg PO TID 04/04/19 [History] Citalopram Hydrobromide [Celexa] 10 mg PO DAILY 04/28/19 [History] Past Medical History - Past Health History Medical/Surgical History: Denies Medical/Surgical History Gastrointestinal History: Reports: None Genitourinary History: Reports: None 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: Musculoskeletal History: Reports: Other (See Below) Other Musculoskeletal History: Fx R leg Psychiatric History: Reports: Anxiety, PTSD Dermatologic History: Reports: None - Infectious Disease History Infectious Disease History: Reports: Chicken Pox - Past Surgical History GI Surgical History: Reports: Cholecystectomy Female Surgical History: Reports: Section Musculoskeletal Surgical History: Reports: Other (See Below) Other Musculoskeletal Surgeries/Procedures:: left rib; R leg Dermatological Surgical History: Reports: Skin Graft Social & Family History - Family History Family Medical History: Noncontributory - Tobacco Use Smoking Status *Q: Current Every Day Smoker Years of Tobacco use: 10 Packs/Tins Daily: 0.5 - Caffeine Use Caffeine Use: Reports: Coffee, Energy Drinks, Soda, Tea - Recreational Drug Use Recreational Drug Use: No ED ROS GENERAL - Review of Systems Review Of Systems: Comprehensive ROS is negative, except as noted in HPI. ED EXAM, GENERAL - Physical Exam Exam: See Below (see dictation) Course - Vital Signs Last Recorded V/S: Last Vital Signs Temp 96.9 F 07/01/19 16:29 Pulse 83 07/01/19 16:29 Resp 16 07/01/19 16:29 BP 141/99 H 07/01/19 16:29 Pulse Ox 99 07/01/19 16:29 - Orders/Labs/Meds Orders: Active Orders 24 hr Category Date Time Status EKG Documentation Completion [RC] STAT Care 07/01/19 18:54 Active CULTURE URINE [RM] Stat Lab 07/01/19 16:33 Received Labs: Laboratory Tests 07/01/19 07/01/19 07/01/19 Range/Units 16:33 16:33 17:42 WBC 7.75 (4.0-11.0) K/uL RBC 3.69 L (4.30-5.90) M/uL Hgb 10.4 L (12.0-16.0) g/dL Hct 30.5 L (36.0-46.0) % MCV 82.7 (80.0-98.0) fL MCH 28.2 (27.0-32.0) pg MCHC 34.1 (31.0-37.0) g/dL RDW Std Deviation 51.5 (28.0-62.0) fl RDW Coeff of Isaac 17 H (11.0-15.0) % Plt Count 208 (150-400) K/uL MPV 10.10 (7.40-12.00) fL Add Manual Diff YES Neutrophils % (Manual) 47 L (48.0-80.0) % Band Neutrophils % 5 % Lymphocytes % (Manual) 39 (16.0-40.0) % Monocytes % (Manual) 7 (0.0-15.0) % Eosinophils % (Manual) 2 (0.0-7.0) % Nucleated RBC % 0.0 /100WBC Absolute Seg Neuts 3.6 (1.4-5.7) Band Neutrophils # 0.4 Lymphocytes # (Manual) 3.0 H (0.6-2.4) Monocytes # (Manual) 0.5 (0.0-0.8) Eosinophils # (Manual) 0.2 (0.0-0.7) Nucleated RBCs # 0 K/uL Sodium (136-145) mmol/L Potassium (3.5-5.1) mmol/L Chloride (98-107) mmol/L Carbon Dioxide (21.0-32.0) mmol/L BUN (7.0-18.0) mg/dL Creatinine (0.6-1.0) mg/dL Est Cr Clr Drug Dosing mL/min Estimated GFR (MDRD) ml/min Glucose (74-106) mg/dL Calcium (8.5-10.1) mg/dL Total Bilirubin (0.2-1.0) mg/dL AST (15-37) IU/L ALT (14-63) IU/L Alkaline Phosphatase (46-116) U/L Total Protein (6.4-8.2) g/dL Albumin (3.4-5.0) g/dL Globulin (2.6-4.0) g/dL Albumin/Globulin Ratio (0.9-1.6) Lipase (73-393) U/L Urine Color YELLOW Urine Appearance SLT CLOUDY Urine pH 6.0 (5.0-8.0) Ur Specific [place] 1.020 (1.001-1.035) Urine Protein 100 H (NEGATIVE) mg/dL Urine Glucose (UA) NEGATIVE (NEGATIVE) mg/dL Urine Ketones NEGATIVE (NEGATIVE) mg/dL Urine Occult Blood LARGE H (NEGATIVE) Urine Nitrite NEGATIVE (NEGATIVE) Urine Bilirubin NEGATIVE (NEGATIVE) Urine Urobilinogen 0.2 (<2.0) EU/dL Ur Leukocyte Esterase SMALL H (NEGATIVE) Urine RBC 20-25 (0-2/HPF) Urine WBC 6-8 (0-5/HPF) Ur Epithelial Cells MANY (NONE-FEW) Urine Bacteria 1+ H (NEGATIVE) Urine Mucus LIGHT (NONE-MOD) Urine HCG, Qual NEGATIVE (NEGATIVE) 07/01/19 Range/Units 17:42 WBC (4.0-11.0) K/uL RBC (4.30-5.90) M/uL Hgb (12.0-16.0) g/dL Hct (36.0-46.0) % MCV (80.0-98.0) fL MCH (27.0-32.0) pg MCHC (31.0-37.0) g/dL RDW Std Deviation (28.0-62.0) fl RDW Coeff of Isaac (11.0-15.0) % Plt Count (150-400) K/uL MPV (7.40-12.00) fL Add Manual Diff Neutrophils % (Manual) (48.0-80.0) % Band Neutrophils % % Lymphocytes % (Manual) (16.0-40.0) % Monocytes % (Manual) (0.0-15.0) % Eosinophils % (Manual) (0.0-7.0) % Nucleated RBC % /100WBC Absolute Seg Neuts (1.4-5.7) Band Neutrophils # Lymphocytes # (Manual) (0.6-2.4) Monocytes # (Manual) (0.0-0.8) Eosinophils # (Manual) (0.0-0.7) Nucleated RBCs # K/uL Sodium 136 (136-145) mmol/L Potassium 4.3 (3.5-5.1) mmol/L Chloride 97 L (98-107) mmol/L Carbon Dioxide 19.7 L (21.0-32.0) mmol/L BUN 116 H (7.0-18.0) mg/dL Creatinine 10.2 H (0.6-1.0) mg/dL Est Cr Clr Drug Dosing 6.24 mL/min Estimated GFR (MDRD) 4.4 ml/min Glucose 104 (74-106) mg/dL Calcium 8.9 (8.5-10.1) mg/dL Total Bilirubin 1.4 H (0.2-1.0) mg/dL AST 8 L (15-37) IU/L ALT 12 L (14-63) IU/L Alkaline Phosphatase 106 (46-116) U/L Total Protein 7.1 (6.4-8.2) g/dL Albumin 2.4 L (3.4-5.0) g/dL Globulin 4.7 H (2.6-4.0) g/dL Albumin/Globulin Ratio 0.5 L (0.9-1.6) Lipase 298 (73-393) U/L Urine Color Urine Appearance Urine pH (5.0-8.0) Ur Specific [place] (1.001-1.035) Urine Protein (NEGATIVE) mg/dL Urine Glucose (UA) (NEGATIVE) mg/dL Urine Ketones (NEGATIVE) mg/dL Urine Occult Blood (NEGATIVE) Urine Nitrite (NEGATIVE) Urine Bilirubin (NEGATIVE) Urine Urobilinogen (<2.0) EU/dL Ur Leukocyte Esterase (NEGATIVE) Urine RBC (0-2/HPF) Urine WBC (0-5/HPF) Ur Epithelial Cells (NONE-FEW) Urine Bacteria (NEGATIVE) Urine Mucus (NONE-MOD) Urine HCG, Qual (NEGATIVE) Meds: Medications Discontinued Medications Generic Name Dose Route Start Last Admin Trade Name Freq PRN Reason Stop Dose Admin Albuterol/Ipratropium Confirm 07/01/19 19:01 07/01/19 19:22 Duoneb 3.0-0.5 Mg/3 Ml Administered 07/01/19 19:02 Not Given Dose 3 ml .ROUTE .STK-MED ONE Sodium Chloride 1,000 mls @ 999 mls/hr 07/01/19 17:20 07/01/19 17:50 Normal Saline IV 07/01/19 18:20 999 mls/hr BOLUS ONE Administration Ceftriaxone Sodium/Dextrose 1 50 mls @ 100 mls/hr 07/01/19 18:16 07/01/19 18: 33 gm/ Premix IV 07/01/19 18:45 100 mls/hr ONETIME ONE Administration Ketorolac Tromethamine 30 mg 07/01/19 17:20 07/01/19 17:50 Toradol IVPUSH 07/01/19 17:21 30 mg ONETIME ONE Administration Morphine Sulfate 2 mg 07/01/19 18:54 07/01/19 19:05 Morphine IVPUSH 07/01/19 18:55 2 mg ONETIME ONE Administration Morphine Sulfate 2 mg 07/01/19 19:54 07/01/19 20:05 Morphine IVPUSH 07/01/19 19:55 2 mg ONETIME ONE Administration Ondansetron HCl 4 mg 07/01/19 18:54 07/01/19 19:04 Zofran IVPUSH 07/01/19 18:55 4 mg ONETIME ONE Administration Departure - Departure Time of Disposition: 18:56 Disposition: DC/[facility]fer to [facility] 02 Clinical Impression: Acute renal failure Qualifiers: Acute renal failure type: unspecified Qualified Code(s): N17.9 - Acute kidney failure, unspecified Urinary tract infection Qualifiers: Urinary tract infection type: site unspecified Hematuria presence: with hematuria Qualified Code(s): N39.0 - Urinary tract infection, site not specified - Discharge Information Referrals: Laron Barber MD [Primary Care Provider] - Forms: ED Department Discharge Sepsis Event Note - Evaluation Sepsis Screening Result: No Definite Risk - Focused Exam Vital Signs: Vital Signs Temp Pulse Resp BP Pulse Ox 07/01/19 16:29 96.9 F 83 16 141/99 H 99 Date Exam was Performed: 07/01/19 Time Exam was Performed: 20:06 - My Orders Last 24 Hours: My Active Orders 07/01/19 16:33 CULTURE URINE [RM] Stat 07/01/19 18:54 EKG Documentation Completion [RC] STAT - Assessment/Plan Last 24 Hours: My Active Orders 07/01/19 16:33 CULTURE URINE [RM] Stat 07/01/19 18:54 EKG Documentation Completion [RC] STAT
--- NOTE | 2019-07-01 18:11 | CT ---
CT abdomen and pelvis Technique: Multiple axial sections were obtained from above the dome of the diaphragm inferiorly through the pubic symphysis. Intravenous and oral contrast was not utilized. Comparison: No prior abdominal imaging is available. Findings: Kidneys show no abnormal calcifications. No ureteral dilatation or ureteral stone is appreciated. Other findings: Visualized lung bases show nothing acute. Noncontrast appearance of the liver and spleen appear within normal limits. Adrenal glands show no nodule. Pancreas shows no discrete abnormality. Surgical clips are seen from prior cholecystectomy. Aorta shows no aneurysm. No retroperitoneal adenopathy or mesenteric abnormalities are seen. No pelvic mass or adenopathy is appreciated. Appendix is seen which is normal in size. No free fluid or inflammatory change is appreciated. Bone window settings were reviewed which showed no acute osseous finding. Impression: 1. No renal calculi, ureteral dilatation or ureteral stone is seen. 2. Nothing acute is appreciated on noncontrast CT study of the abdomen and pelvis. Diagnostic code #2 Study was dictated in [place] Standard Time
[2019-07-01] MEDS ORDERED: cefTRIAXone 1 GM in Premix Bag 1 BAG IV ONE (18:16)
[2019-07-01 18:20] LABS: CARBON DIOXIDE,CO2 19.7 mmol/L (21.0-32.0); POTASSIUM,K 4.3 mmol/L (3.5-5.1)
[2019-07-01] MEDS ORDERED: Ondansetron 4 MG/2 ML SDV IVPUSH ONE (18:54)
[2019-07-01] MEDS ORDERED: Morphine 2 MG/ML Syringe IVPUSH ONE ×2 (18:54→19:54)
[2019-07-01] MEDS ORDERED: Albuterol/Ipratropium 3.0-0.5 MG/3 ML Neb Soln ONE (19:01)
== END 2019-07-01 20:10 ==
LOC: MW.ED 16:15
DX: N17.9 Acute kidney failure, unspecified (principal); N39.0 Urinary tract infection, site not specified; F41.9 Anxiety disorder, unspecified; Z88.1 Allergy status to other antibiotic agents; F17.210 Nicotine dependence, cigarettes, uncomplicated; Z79.899 Other long term (current) drug therapy; Z90.49 Acquired absence of other specified parts of digestive tract
CPT/HCPCS: 36415; 74176; 80053; 80305; 81001; 81025; 83690; 85025; 87086; 93005; 96361; 96365; 96375; 96376; 99285; J0696; J1885; J2270; J2405; J7030

== ENCOUNTER 2019-07-16 18:22 | Emergency (ER) | payer MEDICAID ==
[2019-07-16] MEDS ORDERED: Sodium Chloride 0.9% 1,000 ML IV ONE (18:40)
[2019-07-16] MEDS ORDERED: Sodium Chloride 0.9% 2.5 ML Syringe FLUSH PRN (18:50)
[2019-07-16] MEDS ORDERED: Sodium Chloride 0.9% 10 ML Syringe FLUSH PRN (18:50)
[2019-07-16 19:39] LABS: POTASSIUM,K 3.7 mmol/L (3.5-5.1)
--- NOTE | 2019-07-16 20:21 | CR ---
Chest: Portable view of the chest was obtained. Comparison: Prior chest x-ray of 11/10/18. Pertinent size and mediastinum are normal. Lungs are clear with no acute parenchymal change. Bony structures are grossly intact. Impression: 1. Nothing acute is seen on portable chest x-ray. Diagnostic code #1 Study was dictated in [place] Standard Time
[2019-07-16] MEDS ORDERED: Ciprofloxacin 500 MG Tab PO ONE (22:00)
--- NOTE | 2019-07-16 22:08 | EDM.PDOC ---
ED [facility] GENERAL MEDICAL PROBLEM - General Chief Complaint: General Stated Complaint: SICK Time Seen by Provider: 07/16/19 19:12 - History of Present Illness INITIAL COMMENTS - FREE TEXT/NARRATIVE: HPI 33 y/o female with a recent history of ARF with a brief period of dialysis presents a law enforcement custody for medical screening in the setting of poorly characterized mild malaise of one day duration, no focal symptoms, patient has not followed up with her firebrick layer following her dialysis and discharged from care. Patient reports urine output is at baseline. Patient is a smoker. Patient is a minimal historian and is unclear why she wanted to renal failure states they did not tell me. Triage note: PT to ED for medical clearance due to recent acute renal failure and reportefdly feeling unwell. M/S/F/SocHx notable for: please see HPI; remainder reviewed with patient and in chart. ROS: Negative constitutional, eye, cardiovascular, pulmonary, GI, , MSK, skin , neurologic, psychiatric, endocrine unless noted in the HPI. Exam HR 115, RR 18, BP 125/95, T 36.3C, SaO2 96% on room air. Gen: Pleasant, non-toxic appearing, resting comfortably. HEENT: NC, AT, PEERL, EOMI. Resp: Clear to auscultation bilaterally, normal work of breathing, no accessory muscle usage. Card: Regular rate and rhythm with no murmurs, rubs, or gallops, extremities warm and well perfused. GI: Non-tender to palpation throughout all quadrants, no focal tenderness at McBurney's point, negative Eubanks's sign, non-distended, no rebound or guarding. : No suprapubic tenderness to palpation. MSK: No visible deformities, strength and tone without visually appreciable deficit. Skin: Normal color with no visible lesions. Neuro: alert and oriented 3, no facial asymmetry, vision and hearing WNL. Psych: Mood and affect appropriate. Labs / Imaging: WBC 5.43, HB 10.0, sodium 144, potassium 3.7, creatinine 3.1, hCG negative. UA - small leukocyte esterase, logical blood, negative nitrate, 3+ bacteria. UDS with methamphetamines and amphetamines. MDM Previous chart, nursing note, labs, imaging, and vitals reviewed. A: 33 y/o female with a recent history of ARF with a brief period of dialysis presents a law enforcement custody for medical screening in the setting of poorly characterized mild malaise of one day duration, no focal symptoms, patient has not followed up with her firebrick layer following her dialysis and discharged from care. DDx: Evaluation: 1. Medical history review notes creatinine of 10.1 on 07/04/19 with transfer to [facility] for further care, outside records requested. Todays creatinine 3.1, post dialysis baseline currently unknown. Electrolytes WNL. 1 L NS given. 2. Patient with normal electrolytes, elevated creatinine, 1 L NS given, otherwise no discernible abnormalities. 3. 21:54 - discussed case with the firebrick layer pony ride attendant at [facility], patient was discharged with a creatinine of 5, todays creatinine at 3.1 is appropriate, no further interventions recommended, recommend continued good hydration and routine follow-up. 4. UA with infection, renal dosing reviewed, patient given 500 mg ciprofloxacin PO. Disposition: discharge with PCP follow-up recommended in 2 days for repeat creatinine measurement, ciprofloxacin Rx provided. Impression: UTI, renal insufficiency. chronis right leg pain Pain Score (Numeric/FACES): 7 - Related Data Allergies Allergy/AdvReac Type Severity Reaction Status Date / Time amoxicillin Allergy Other Verified 07/01/19 16:28 azithromycin [From Zithromax] Allergy Other Verified 07/01/19 16:28 erythromycin base Allergy Rash Verified 07/01/19 16:28 Home Meds: Home Meds busPIRone [Buspar] 15 mg PO DAILY 12/08/18 [History] ARIPiprazole [Abilify Maintena] 0 mg IM ASDIRECTED 04/04/19 [History] Gabapentin [Neurontin] 0 mg PO TID 04/04/19 [History] Ciprofloxacin [Ciprofloxacin HCl] 500 mg PO .XX 10 Days #13 tab 07/16/19 [Rx] Furosemide 40 mg PO DAILY 07/16/19 [History] Iron 27 mg PO BEDTIME 07/16/19 [History] Iron Polysaccharide Complex [Iferex 150] 150 mg PO BID 07/16/19 [History] Past Medical History - Past Health History Medical/Surgical History: Denies Medical/Surgical History Gastrointestinal History: Reports: None Genitourinary History: Reports: Acute Renal Failure 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: Musculoskeletal History: Reports: Other (See Below) Other Musculoskeletal History: Fx R leg Psychiatric History: Reports: Anxiety, PTSD Dermatologic History: Reports: None - Infectious Disease History Infectious Disease History: Reports: Chicken Pox - Past Surgical History GI Surgical History: Reports: Cholecystectomy Female Surgical History: Reports: Section Musculoskeletal Surgical History: Reports: Other (See Below) Other Musculoskeletal Surgeries/Procedures:: left rib; R leg Dermatological Surgical History: Reports: Skin Graft Social & Family History - Family History Family Medical History: Noncontributory - Tobacco Use Smoking Status *Q: Unknown Ever Smoked - Caffeine Use Caffeine Use: Reports: Coffee, Energy Drinks, Soda, Tea - Recreational Drug Use Recreational Drug Use: Yes ED ROS GENERAL - Review of Systems Review Of Systems: See Below ED EXAM, GENERAL - Physical Exam Exam: See Below Course - Vital Signs Last Recorded V/S: Last Vital Signs Temp 36.8 C 07/16/19 20:38 Pulse 88 07/16/19 20:38 Resp 16 07/16/19 20:38 BP 136/97 H 07/16/19 20:38 Pulse Ox 100 07/16/19 20:38 - Orders/Labs/Meds Orders: Active Orders 24 hr Category Date Time Status EKG Documentation Completion [RC] STAT Care 07/16/19 18:40 Active CULTURE URINE [RM] Stat Lab 07/16/19 19:43 Received Sodium Chloride 0.9% [Saline Flush] Med 07/16/19 18:50 Active 10 ml FLUSH ASDIRECTED PRN Sodium Chloride 0.9% [Saline Flush] Med 07/16/19 18:50 Active 2.5 ml FLUSH ASDIRECTED PRN Saline Lock Insert [OM.PC] Stat Oth 07/16/19 18:50 Ordered Medication Orders Sodium Chloride (Saline Flush) 10 ml FLUSH ASDIRECTED PRN PRN Reason: Keep Vein Open Sodium Chloride (Saline Flush) 2.5 ml FLUSH ASDIRECTED PRN PRN Reason: Keep Vein Open Labs: Laboratory Tests 07/16/19 07/16/19 07/16/19 Range/Units 19:00 19:00 19:00 WBC 5.43 (4.0-11.0) K/uL RBC 3.48 L (4.30-5.90) M/uL Hgb 10.0 L (12.0-16.0) g/dL Hct 31.6 L (36.0-46.0) % MCV 90.8 (80.0-98.0) fL MCH 28.7 (27.0-32.0) pg MCHC 31.6 (31.0-37.0) g/dL RDW Std Deviation 56.2 (28.0-62.0) fl RDW Coeff of Isaac 17 H (11.0-15.0) % Plt Count 361 (150-400) K/uL MPV 8.90 (7.40-12.00) fL Neut % (Auto) 52.7 (48.0-80.0) % Lymph % (Auto) 38.5 (16.0-40.0) % Mora % (Auto) 5.9 (0.0-15.0) % Eos % (Auto) 1.8 (0.0-7.0) % Baso % (Auto) 1.1 (0.0-1.5) % Neut # (Auto) 2.9 (1.4-5.7) K/uL Lymph # (Auto) 2.1 (0.6-2.4) K/uL Mora # (Auto) 0.3 (0.0-0.8) K/uL Eos # (Auto) 0.1 (0.0-0.7) K/uL Baso # (Auto) 0.1 (0.0-0.1) K/uL Nucleated RBC % 0.0 /100WBC Nucleated RBCs # 0 K/uL Sodium 144 (136-145) mmol/L Potassium 3.7 (3.5-5.1) mmol/L Chloride 105 (98-107) mmol/L Carbon Dioxide 29.0 (21.0-32.0) mmol/L BUN 39 H (7.0-18.0) mg/dL Creatinine 3.1 H (0.6-1.0) mg/dL Est Cr Clr Drug Dosing 20.60 mL/min Estimated GFR (MDRD) 17.4 ml/min Glucose 95 (74-106) mg/dL Calcium 10.0 (8.5-10.1) mg/dL Total Bilirubin 0.4 (0.2-1.0) mg/dL AST 16 (15-37) IU/L ALT 21 (14-63) IU/L Alkaline Phosphatase 91 (46-116) U/L Total Protein 7.9 (6.4-8.2) g/dL Albumin 3.6 (3.4-5.0) g/dL Globulin 4.3 H (2.6-4.0) g/dL Albumin/Globulin Ratio 0.8 L (0.9-1.6) HCG, Qual NEGATIVE (NEG) Urine Color Urine Appearance Urine pH (5.0-8.0) Ur Specific [place] (1.001-1.035) Urine Protein (NEGATIVE) mg/dL Urine Glucose (UA) (NEGATIVE) mg/dL Urine Ketones (NEGATIVE) mg/dL Urine Occult Blood (NEGATIVE) Urine Nitrite (NEGATIVE) Urine Bilirubin (NEGATIVE) Urine Urobilinogen (<2.0) EU/dL Ur Leukocyte Esterase (NEGATIVE) Urine RBC (0-2/HPF) Urine WBC (0-5/HPF) Ur Epithelial Cells (NONE-FEW) Urine Bacteria (NEGATIVE) Urine Mucus (NONE-MOD) Urinalysis Comment Urine Opiates Screen (NEGATIVE) Ur Oxycodone Screen (NEGATIVE) Urine Methadone Screen (NEGATIVE) Ur Barbiturates Screen (NEGATIVE) Ur Phencyclidine Scrn (NEGATIVE) Ur Amphetamine Screen (NEGATIVE) U Methamphetamines Scrn (NEGATIVE) U Benzodiazepines Scrn (NEGATIVE) U Cocaine Metab Screen (NEGATIVE) U Marijuana (THC) Screen (NEGATIVE) 07/16/19 07/16/19 Range/Units 19:43 19:43 WBC (4.0-11.0) K/uL RBC (4.30-5.90) M/uL Hgb (12.0-16.0) g/dL Hct (36.0-46.0) % MCV (80.0-98.0) fL MCH (27.0-32.0) pg MCHC (31.0-37.0) g/dL RDW Std Deviation (28.0-62.0) fl RDW Coeff of Isaac (11.0-15.0) % Plt Count (150-400) K/uL MPV (7.40-12.00) fL Neut % (Auto) (48.0-80.0) % Lymph % (Auto) (16.0-40.0) % Mora % (Auto) (0.0-15.0) % Eos % (Auto) (0.0-7.0) % Baso % (Auto) (0.0-1.5) % Neut # (Auto) (1.4-5.7) K/uL Lymph # (Auto) (0.6-2.4) K/uL Mora # (Auto) (0.0-0.8) K/uL Eos # (Auto) (0.0-0.7) K/uL Baso # (Auto) (0.0-0.1) K/uL Nucleated RBC % /100WBC Nucleated RBCs # K/uL Sodium (136-145) mmol/L Potassium (3.5-5.1) mmol/L Chloride (98-107) mmol/L Carbon Dioxide (21.0-32.0) mmol/L BUN (7.0-18.0) mg/dL Creatinine (0.6-1.0) mg/dL Est Cr Clr Drug Dosing mL/min Estimated GFR (MDRD) ml/min Glucose (74-106) mg/dL Calcium (8.5-10.1) mg/dL Total Bilirubin (0.2-1.0) mg/dL AST (15-37) IU/L ALT (14-63) IU/L Alkaline Phosphatase (46-116) U/L Total Protein (6.4-8.2) g/dL Albumin (3.4-5.0) g/dL Globulin (2.6-4.0) g/dL Albumin/Globulin Ratio (0.9-1.6) HCG, Qual (NEG) Urine Color YELLOW Urine Appearance CLOUDY Urine pH 6.0 (5.0-8.0) Ur Specific [place] 1.015 (1.001-1.035) Urine Protein 30 H (NEGATIVE) mg/dL Urine Glucose (UA) NEGATIVE (NEGATIVE) mg/dL Urine Ketones NEGATIVE (NEGATIVE) mg/dL Urine Occult Blood LARGE H (NEGATIVE) Urine Nitrite NEGATIVE (NEGATIVE) Urine Bilirubin NEGATIVE (NEGATIVE) Urine Urobilinogen 0.2 (<2.0) EU/dL Ur Leukocyte Esterase SMALL H (NEGATIVE) Urine RBC 4-6 (0-2/HPF) Urine WBC 3-5 (0-5/HPF) Ur Epithelial Cells MANY (NONE-FEW) Urine Bacteria 3+ H (NEGATIVE) Urine Mucus LIGHT (NONE-MOD) Urinalysis Comment Urine Opiates Screen NEGATIVE (NEGATIVE) Ur Oxycodone Screen NEGATIVE (NEGATIVE) Urine Methadone Screen NEGATIVE (NEGATIVE) Ur Barbiturates Screen NEGATIVE (NEGATIVE) Ur Phencyclidine Scrn NEGATIVE (NEGATIVE) Ur Amphetamine Screen POSITIVE (NEGATIVE) U Methamphetamines Scrn POSITIVE (NEGATIVE) U Benzodiazepines Scrn NEGATIVE (NEGATIVE) U Cocaine Metab Screen NEGATIVE (NEGATIVE) U Marijuana (THC) Screen NEGATIVE (NEGATIVE) Meds: Medications Generic Name Dose Route Start Last Admin Trade Name Freq PRN Reason Stop Dose Admin Sodium Chloride 10 ml 07/16/19 18:50 Saline Flush FLUSH ASDIRECTED PRN Keep Vein Open Sodium Chloride 2.5 ml 07/16/19 18:50 Saline Flush FLUSH ASDIRECTED PRN Keep Vein Open Discontinued Medications Generic Name Dose Route Start Last Admin Trade Name Freq PRN Reason Stop Dose Admin Ciprofloxacin 500 mg 07/16/19 22:00 Ciprofloxacin Hcl PO 07/16/19 22:01 ONETIME ONE Sodium Chloride 1,000 mls @ 999 mls/hr 07/16/19 18:40 07/16/19 18:53 Normal Saline IV 07/16/19 19:40 Not Given STAT ONE Departure - Departure Time of Disposition: 22:04 Disposition: DC/Tfer to Other 70 Clinical Impression: Renal insufficiency - Discharge Information Prescriptions: Ciprofloxacin [Ciprofloxacin HCl] 500 mg PO .XX 10 Days #13 tab Referrals: PCPDuane [Primary Care Provider] - Additional Instructions: You were in seen in the [facility] Emergency Department for evaluation of medical clearance for incarceration. At the time of your evaluation you were found to have ongoing impaired renal function, however you remain appropriate for incarceration. You were also found have a urinary tract infection. Please do the followin. Please discontinue any antibiotics that you may be taking. Please take ciprofloxacin 500 mg every 18 hours. Your last dose of ciprofloxacin was on 07/16 at 10 PM. 2. Please stay well-hydrated. 3. Please follow-up with your primary care provider in 48 hours for repeat measurement of your renal function and adjustment of your antibiotics is appropriate. Please read and follow all of the instructions below. When calling for follow-up care, please make the office aware that this follow- up is from your recent emergency room visit. If for any reason you are refused follow-up, please contact the [facility] Emergency Department at and asked to speak to the emergency department charge nurse. Your care today was limited to identifying and treating emergent medical problems only. Many people have subtle differences in their test results that require follow up with their outpatient physician(s) to correctly determine if this represents a normal variation or concerning abnormality with respect to your specific health. The care given to you today was limited to identifying and treating emergent medical problems - you need to request a copy of all of your medical records from today's visit and follow up with your outpatient physician(s) to review both today's visit and your overall health. If you have any new symptoms or if you are at all concerned about your health please return immediately to the emergency department. You have an infection of your urinary tract. Take the antibiotics as prescribed. Stay well hydrated. Please return to the emergency department if you develop any of the following: Fevers or chills Flank pain Back pain Blood in your urine If you are otherwise concerned about your health If after 3 days of you still have pain on urination or a sensation that you need to urinate frequently please follow up with your primary care physician. Ciprofloxacin (Brand Name: Cipro) This medication is used to treat a variety of bacterial infections. Ciprofloxacin belongs to a class of drugs called quinolone antibiotics. It works by stopping the growth of bacteria. This antibiotic treats only bacterial infections. It will not work for virus infections (such as common cold, flu). Ciprofloxacin - How To Use: * This medication may be taken with or without food as directed by your doctor, usually twice a day in the morning and evening. * If you are using a liquid form of this drug, shake the container well for 15 seconds before pouring each dose. Carefully measure the dose using a special measuring device/spoon. Do not use a household spoon because you may not get the correct dose. Do not chew the contents of the suspension. * Take this medication at least 2 hours before or 6 hours after taking other products that may bind to it, decreasing its effectiveness. Ask your pharmacist about the other products you take. Some examples include: quinapril, sevelamer, sucralfate, vitamins/minerals (including iron and zinc supplements), and products containing magnesium, aluminum, or calcium (such as antacids, didanosine solution, calcium supplements). * Calcium-rich foods, including dairy products (such as milk, yogurt) or calcium -enriched juice, can also decrease the effect of this medication. Take this medication at least 2 hours before or 6 hours after eating calcium-rich foods, unless you are eating these foods as part of a larger meal that contains other ( [id number]) foods. These other foods decrease the calcium binding effect. * Ask your doctor or pharmacist about safely using nutritional supplements/ replacements with this medication. * Antibiotics work best when the amount of medicine in your body is kept at a constant level. Therefore, take this drug at evenly spaced intervals. * Continue to take this medication until the full prescribed amount is finished , even if symptoms disappear after a few days. Stopping the medication too early may result in a return of the infection. * Please read all the package instructions with this medication. Ciprofloxacin - Side Effects: * Nausea, diarrhea, dizziness, lightheadedness, headache, or trouble sleeping may occur. If any of these effects persist or worsen, tell your doctor or pharmacist promptly. * Tell your doctor right away if you have any serious side effects, including: skin that sunburns more easily (sun sensitivity), unusual bruising/bleeding, signs of a new infection (such as new/persistent fever, persistent sore throat) , unusual change in the amount of urine, change in color of urine (red/pink color), signs of liver problems (such as unusual tiredness, stomach/abdominal pain, persistent nausea/vomiting, yellowing eyes/skin, dark urine). * Get medical help right away if you have any very serious side effects, including: severe/persistent headache, vision changes, shaking (tremors), seizures, severe dizziness, fainting, fast/irregular heartbeat, mental/mood changes (such as anxiety, confusion, hallucinations, depression, rare thoughts of suicide). * Rarely, this medication may cause serious, possibly permanent, nerve problems (peripheral neuropathy). Stop taking ciprofloxacin and tell your doctor right away if you have any of the following symptoms: pain/numbness/burning/tingling/ weakness in your arms, hands, legs, or feet, changes in how you sense touch/pain /temperature/vibration/body position. * This medication may rarely cause a severe intestinal condition (Clostridium difficile-associated diarrhea) due to a type of resistant bacteria. This condition may occur during treatment or weeks to months after treatment has stopped. Tell your doctor right away if you develop: persistent diarrhea, abdominal or stomach pain/cramping, blood/mucus in your stool. * Do not use anti-diarrhea products or narcotic pain medications if you have any of these symptoms because these products may make them worse. * Use of this medication for prolonged or repeated periods may result in oral thrush or a new yeast infection. Contact your doctor if you notice white patches in your mouth, a change in vaginal discharge, or other new symptoms. * A very serious allergic reaction to this drug is rare. However, get medical help right away if you notice any of the following symptoms of a serious allergic reaction: rash, itching/swelling (especially of the face/tongue/throat) , severe dizziness, trouble breathing. * This is not a complete list of possible side effects. If you notice other effects not listed above, contact your doctor or pharmacist. Ciprofloxacin - Precautions: * This medication is associated with an increased risk of tendon rupture. Tendons are the areas that connect your muscles to your joints, an example would be the Achilles tendon at the back of your ankle. You will have increased risk of tendon rupture if you are older than 60 years, take steroids ( corticosteroids) or are kidney, heart, or lung transplant recipient. While there is a risk of tendon rupture, the overall risk versus benefits of this medication were considered at the time of this drug being prescribed. Call your healthcare provider right away at the first signs or symptoms of pain, swelling or inflammation in a tendon area. These could be symptoms of tendinitis or tendon rupture. Stop taking your ciprofloxacin until a healthcare provider has determined that you do not have tendinitis or a tendon rupture. Signs or symptoms of tendon rupture include: a snap or pop in a tendon area, bruising right after an injury in a tendon area, inability to move the affected area or bear weight. * Before taking ciprofloxacin, tell your doctor or pharmacist if you are allergic to it; or to other quinolone antibiotics such as norfloxacin, gemifloxacin, levofloxacin, moxifloxacin, or ofloxacin; or if you have any other allergies. This product may contain inactive ingredients, which can cause allergic reactions or other problems. Talk to your pharmacist for more details. * This medication may rarely cause tendon damage (such as tendonitis, tendon rupture) during or after treatment. Your risk for tendon problems is greater if you are over 60 years of age, if you are taking corticosteroids (such as prednisone), or if you have a kidney, heart, or lung transplant. Stop exercising , rest, and get medical help right away if you develop joint/muscle/tendon pain or swelling. * Ciprofloxacin should not be used by patients with myasthenia gravis. It may cause the condition to become worse. Get medical help right away if you develop muscle weakness or trouble breathing. * Before using this medication, tell your doctor or pharmacist your medical history, especially of: diabetes, heart problems (such as recent heart attack), joint/tendon problems (such as tendonitis, bursitis), kidney disease, liver disease, myasthenia gravis, nerve problems (such as peripheral neuropathy), seizures, conditions that increase your risk of seizures (such as brain/head injury, brain tumors, cerebral atherosclerosis). * Ciprofloxacin may cause a condition that affects the heart rhythm (QT prolongation). QT prolongation can rarely cause serious (rarely fatal) fast/ irregular heartbeat and other symptoms (such as severe dizziness, fainting) that need medical attention right away. * The risk of QT prolongation may be increased if you have certain medical conditions or are taking other drugs that may cause QT prolongation. Before using ciprofloxacin, tell your doctor or pharmacist of all the drugs you take and if you have any of the following conditions: certain heart problems (heart failure, slow heartbeat, QT prolongation in the EKG), family history of certain heart problems (QT prolongation in the EKG, sudden cardiac ). * Low levels of potassium or magnesium in the blood may also increase your risk of QT prolongation. This risk may increase if you use certain drugs (such as diuretics/"water pills") or if you have conditions such as severe sweating, diarrhea, or vomiting. Talk to your doctor about using ciprofloxacin safely. * This medication may rarely cause serious changes in blood sugar levels, especially if you have diabetes. Watch for symptoms of high blood sugar including increased thirst and urination. Ciprofloxacin may increase the blood sugar-lowering effects of the medication glyburide. Also watch for symptoms of low blood sugar such as sudden sweating, shaking, fast heartbeat, hunger, blurred vision, dizziness, or tingling hands/feet. Check your blood sugar regularly as directed by your doctor and report any changes. If you experience symptoms of low blood sugar, you may raise your blood sugar by using glucose tablets/gel or eating a quick source of sugar such as table sugar, honey, or candy, or drinking fruit juice or non-diet soda. Tell your doctor right away about the reaction and the use of this product. To help prevent low blood sugar , eat meals on a regular schedule, and do not skip meals. Your doctor may need to switch you to another antibiotic or adjust your diabetes medications if any reaction occurs. * This drug may make you dizzy. Do not drive, use machinery, or do any activity that requires alertness until you are sure you can perform such activities safely. Limit alcoholic beverages. * This medication may make you more sensitive to the sun. Avoid prolonged sun exposure, tanning booths, and sunlamps. Use a sunscreen and wear protective clothing when outdoors. Other medications (such as tretinoin-mequinol) may increase your sun sensitivity. Ask your doctor or pharmacist for more details. * Ciprofloxacin may cause live bacterial vaccines (such as typhoid vaccine) not to work as well. Therefore, do not have any immunizations/vaccinations while using this medication without the consent of your doctor. * Before having surgery, tell your doctor or dentist about all the products you use (including prescription drugs, nonprescription drugs, and herbal products). * This medication contains sucrose and is therefore not recommended if you have a rare hereditary metabolic condition (such as fructose intolerance, sucrase- isomaltase deficiency, glucose-galactose malabsorption). * Children may be more sensitive to the side effects of this drug, especially joint/tendon problems. * Older adults may be more sensitive to the side effects of this drug, especially tendon problems (especially if they are also taking corticosteroids such as prednisone or hydrocortisone) and QT prolongation (see above). * During , this medication should be used only when clearly needed. Discuss the risks and benefits with your doctor. * This medication passes into breast milk. Consult your doctor before breast- feeding. Ciprofloxacin - Drug Interactions: * Drug interactions may change how your medications work or increase your risk for serious side effects. This document does not contain all possible drug interactions. Keep a list of all the products you use (including prescription/ nonprescription drugs and herbal products) and share it with your doctor and pharmacist. Do not start, stop, or change the dosage of any medicines without your doctor's approval. * Some products that may interact with this drug include: "blood thinners" ( such as acenocoumarol, warfarin), strontium. * Many drugs besides ciprofloxacin may affect the heart rhythm (QT prolongation) , including amiodarone, dofetilide, quinidine, procainamide, sotalol, among others. * This medication can slow down the removal of other medications from your body , which may affect how they work. Examples of affected drugs include duloxetine , pirfenidone, tasimelteon, tizanidine, among others. * Avoid drinking large amounts of beverages containing caffeine (coffee, tea, valentin), eating large amounts of chocolate, or taking [id number] products that contain caffeine. This drug may increase and/or prolong the effects of caffeine. * Although most antibiotics are unlikely to affect hormonal control such as pills, patch, or ring, a few antibiotics (such as rifampin, rifabutin) can decrease their effectiveness. This could result in . If you use hormonal control, ask your doctor or pharmacist for more details. Prescriptions: If you are uninsured or have financial difficulties with filling your prescription(s), you may consider using a free pharmacy discount service such as [employer] ([employer]) or [employer] ([employer]). These services allow you to search for a medication on your phone (or computer) and obtain a coupon that usually has a significant discount from the list sanders at a pharmacy. Your physician as well as [facility] does not have a financial relationship with either of these services. You may also wish to speak with your physician to determine if lower cost prescriptions are possible. Obtaining primary care: 1. [facility] provides pediatrics (children), family medicine (children, adults, and some obstetrical care), and internal medicine (adults). Further specialty care is also available. Same day appointments are available. They may be contacted at [phone] and are open Tuesday through Tuesday 8 AM to 5 PM. The [facility] are located at [facility], [address] [place] [address]. 2. [facility] offers family medicine, internal medicine, womens health, and further specialty care. [facility] may be contacted at [phone]. [facility] is located at [address] [place], [address]. 3. If you have health insurance, please also contact your insurer for a list of accepting providers under your policy, you may contact these providers for further health care. Occupational health: Work related injuries may consider following up with [facility], . Occupational health services are located at [address] [place] [phone] and are open Tuesday through Tuesday from 7: 30 am to 5:00 pm. Obstetrical and Gynecological Care: [facility], , Tuesday through Tuesday 8 AM to 5 PM. [address] [address]. Eyecare: If you have an eye injury you should follow up with your dice table person or with [facility], at [phone] or [phone] , they are located at [address] [place] [address]. Dental Care Osmin Bailon DDS. [address] [place], [place]. Ph. [phone] Pedro Bailon DDS MS. [address] [facility] [address], [place], [place]. Ph. Eduardo Amos DDS. [address] [place] [address]. Ph. [phone] Shen King DDS. [address] [facility] [address] [place], [place]. Ph. [phone] Gorge Limon DDS PC. [address] [facility] [place] [facility] [address] [place], [place]. Ph. [phone] Ana Allen DDS. [address] [facility]. Ph. [phone] [facility]. [address] [place], [place]. Ph. [phone] [facility]. [address] [place] [address], [place], [place]. Ph. [phone] [facility] [address] [place] [address]. Ph. [facility]. [address] [place] [address] [address] CLARITA Austin. Ph. [phone] [facility]. [address] [place] [address] W, CLARITA Austin. Ph. Sepsis Event Note - Evaluation Sepsis Screening Result: No Definite Risk - Focused Exam Vital Signs: Vital Signs Temp Pulse Resp BP Pulse Ox 07/16/19 20:38 36.8 C 88 16 136/97 H 100 07/16/19 18:33 36.3 C 115 H 18 125/95 H 96 Date Exam was Performed: 07/16/19 Time Exam was Performed: 22:04
== END 2019-07-16 22:38 | disposition other institution (70) ==
LOC: MW.ED 18:22
DX: N28.9 Disorder of kidney and ureter, unspecified (principal); N39.0 Urinary tract infection, site not specified; F41.9 Anxiety disorder, unspecified; F43.10 Post-traumatic stress disorder, unspecified; F17.200 Nicotine dependence, unspecified, uncomplicated; Z90.49 Acquired absence of other specified parts of digestive tract; Z79.899 Other long term (current) drug therapy
CPT/HCPCS: 36415; 71045; 80053; 80305; 81001; 84703; 85025; 87086; 93005; 99285; A9270

== ENCOUNTER 2020-05-02 06:04 | Inpatient (IN) | payer MEDICAID ==
[2020-05-02] MEDS ORDERED: ceFAZolin 1 GM in Premix Bag 1 BAG IV ONE (06:15)
[2020-05-02] MEDS ORDERED: Sodium Chloride 0.9% 2.5 ML Syringe FLUSH PRN (06:15)
[2020-05-02] MEDS ORDERED: Citric Acid/Sodium Citrate Solution 30 ML Cup PO ONE (06:15)
[2020-05-02] MEDS ORDERED: Sodium Chloride 0.9% 10 ML Syringe FLUSH PRN (06:15)
[2020-05-02] MEDS ORDERED: Sodium Chloride 0.9% 10 ML SDV IV PRN (06:15)
[2020-05-02] MEDS ORDERED: Oxytocin/0.9 % Sodium Chloride 30 UNIT/500 ML BAG IV SCH (06:15)
[2020-05-02] MEDS ORDERED: Ondansetron 4 MG Tab.DIS PO PRN (06:15)
[2020-05-02] MEDS ORDERED: Ondansetron 4 MG/2 ML SDV ONE (06:52)
[2020-05-02] MEDS ORDERED: Sodium Chloride 0.9% 20 ML ONE (06:52)
[2020-05-02] MEDS ORDERED: Ketorolac 30 MG/ML SDV ONE (06:52)
[2020-05-02] MEDS ORDERED: ceFAZolin 1 GM Vial ONE (06:52)
[2020-05-02] MEDS ORDERED: Morphine PF 10 MG/10 ML SDV ONE (06:52)
[2020-05-02] MEDS ORDERED: Oxytocin 10 Units/1 ML SDV ONE (06:52)
[2020-05-02] MEDS ORDERED: Phenylephrine 1% 10 MG/ML SDV ONE (06:52)
[2020-05-02] MEDS: Lactated Ringers 1,000 ML IV SCH ×2 (08:01→08:39)
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
[2020-05-02] MEDS ORDERED: Methylergonovine 0.2 MG/1 ML Amp IM PRN (12:54)
[2020-05-02] MEDS ORDERED: Oxytocin 10 Units/1 ML SDV IM PRN (12:54)
[2020-05-02] MEDS ORDERED: Ondansetron 4 MG/2 ML SDV IVPUSH PRN (12:54)
[2020-05-02] MEDS ORDERED: Misoprostol 200 MCG Tab RECTAL PRN (12:54)
[2020-05-02] MEDS ORDERED: Tranexamic Acid 1,000 MG in Sodium Chloride 0.9% 100 ML IV PRN (12:54)
[2020-05-02] MEDS ORDERED: diphenhydrAMINE 50 MG/ML SDV IVPUSH PRN (12:54)
[2020-05-02] MEDS ORDERED: Bisacodyl 10 MG Supp RECTAL PRN (12:54)
[2020-05-02] MEDS ORDERED: Acetaminophen/oxyCODONE 325-5 MG Tab PO PRN (12:54)
[2020-05-02] MEDS ORDERED: Lanolin 100% Cream 7 GM Tube TOP PRN (12:54)
[2020-05-02] MEDS ORDERED: Oxytocin/Lactated Ringers 30 UNIT/500 ML BAG IV SCH (13:00)
[2020-05-02] MEDS ORDERED: Ketorolac 30 MG/ML SDV IVPUSH SCH (13:00)
[2020-05-02] MEDS ORDERED: Lactated Ringers 1,000 ML IV SCH (13:00)
--- NOTE | 2020-05-02 13:15 | PCM.DEL ---
L & D Note - General Info Date of Service: 05/02/20 Mother's Due Date: 05/10/20 - Delivery Note Delivery Outcome: Livebirth Infant Delivery Method: Scheduled Presentation: Vertex Nuchal Cord: None Anesthesia Type: Spinal Placenta: Intact, Spontaneous Cord: 3 Vessels Estimated Blood Loss: 200 Resuscitation Needed: No : Suctioned, Stimulated Score 1 min: 9 Score 5 min: 9 Delivery Comments (Free Text/Narrative):: 34yo G3 now P3003 s/p scheduled repeat . Delivery without complications. H/o remarkable for late to care. H/o meth use early in , but UDS was unremarkable. Lab significant for O+, abs screen positive, RI, GBS negative Delivery details: BB Apgars: 99 Weight: 6lbs 12oz EBL: 200mLs Placenta delivered spontaneously - General Info Date of Service: 05/02/20 Admission Dx/Problem (Free Text): Patient Status Order with Admit Dx/Problem 05/02/20 06:15 Patient Status [ADT] Routine Admission Diagnosis/Problem Admission Diagnosis/Problem Subjective Update: Post delivery, patient reports feeling well. VS wnl Functional Status: Reports: Pain Controlled - Review of Systems General: Reports: No Symptoms HEENT: Reports: No Symptoms Pulmonary: Reports: No Symptoms Cardiovascular: Reports: No Symptoms Gastrointestinal: Reports: No Symptoms Genitourinary: Reports: No Symptoms Musculoskeletal: Reports: No Symptoms Neurological: Reports: No Symptoms Psychiatric: Reports: No Symptoms - Patient Data Vitals - Most Recent: Last Vital Signs Temp 96.8 F L 05/02/20 12:27 Pulse 63 05/02/20 13:02 Resp 14 05/02/20 13:02 BP 115/77 05/02/20 13:02 Pulse Ox 96 05/02/20 13:02 Weight - Most Recent: 56.699 kg I&O - Last 24 Hours: Intake & Output 05/01/20 05/02/20 05/02/20 22:59 06:59 14:59 Intake Total 2550 Output Total 50 Balance 2500 Lab Results Last 24 Hours: Laboratory Results - last 24 hr 05/02/20 05/02/20 05/02/20 Range/Units 06:35 06:35 06:35 WBC 8.37 (4.0-11.0) K/uL RBC 4.31 (4.30-5.90) M/uL Hgb 12.8 (12.0-16.0) g/dL Hct 39.6 (36.0-46.0) % MCV 91.9 (80.0-98.0) fL MCH 29.7 (27.0-32.0) pg MCHC 32.3 (31.0-37.0) g/dL RDW Std Deviation 44.8 (28.0-62.0) fl RDW Coeff of Isaac 13 (11.0-15.0) % Plt Count 174 (150-400) K/uL MPV 10.70 (7.40-12.00) fL Nucleated RBC % 0.0 /100WBC Nucleated RBCs # 0 K/uL Blood Type O POSITIVE Antibody Screen POSITIVE Antibody Identification Anti-c Crossmatch See Detail Med Orders - Current: Current Medications Bisacodyl (Dulcolax) 10 mg RECTAL ONETIME PRN PRN Reason: Constipation Diphenhydramine HCl (Benadryl) 25 mg IVPUSH Q6H PRN PRN Reason: Itching or Nausea Docusate Sodium (Colace) 100 mg PO BID [place] Emollient Ointment (Lansinoh Hpa) 0 gm TOP ASDIRECTED PRN PRN Reason: Sore Nipples Oxytocin/Sodium Chloride (Oxytocin 30 Unit/500 Ml-Ns) 30 unit in 500 mls @ 250 mls/hr IV TITRATE [place] Lactated Ringer's (Ringers, Lactated) 1,000 mls @ 500 mls/hr IV BOLUS [facility] Last Admin: 05/02/20 08:39 Dose: 250 mls/hr Documented by: Lactated Ringer's (Ringers, Lactated) 1,000 mls @ 125 mls/hr IV ASDIRECTED [place] Oxytocin/Lactated Ringer's (Pitocin In Lr 30 Units/500 Ml) 30 unit in 500 mls @ 2 mls/hr IV TITRATE [place]; Protocol Tranexamic Acid 1,000 mg/ (Sodium Chloride) 110 mls @ 660 mls/hr IV ONETIME PRN PRN Reason: Bleeding Ibuprofen (Motrin) 800 mg PO Q8H PRN PRN Reason: mild pain or fever Ketorolac Tromethamine (Toradol) 30 mg IVPUSH Q6H [place] Stop: 05/03/20 13:01 Methylergonovine Maleate (Methergine) 0.2 mg IM ONETIME PRN PRN Reason: Excessive Vaginal Bleeding Misoprostol (Cytotec) 1,000 mcg RECTAL ONETIME PRN PRN Reason: excessive bleeding Ondansetron HCl (Zofran Odt) 4 mg PO Q6H PRN PRN Reason: Nausea/Vomiting Ondansetron HCl (Zofran) 4 mg IVPUSH Q4H PRN PRN Reason: Nausea/Vomiting Oxycodone/Acetaminophen (Percocet 325-5 Mg) 1 tab PO Q4H PRN PRN Reason: Pain (moderate 4-6) Oxycodone/Acetaminophen (Percocet 325-5 Mg) 2 tab PO Q4H PRN PRN Reason: Pain (moderate 4-6) Oxytocin (Pitocin) 10 unit IM ASDIRECTED PRN PRN Reason: Excessive Vaginal Bleeding Sodium Chloride (Saline Flush) 10 ml FLUSH ASDIRECTED PRN PRN Reason: Keep Vein Open Sodium Chloride (Saline Flush) 2.5 ml FLUSH ASDIRECTED PRN PRN Reason: Keep Vein Open Sodium Chloride (Normal Saline) 10 ml IV ASDIRECTED PRN PRN Reason: IV Use Discontinued Medications Cefazolin Sodium (Ancef) Confirm Administered Dose 1 gm .ROUTE .STK-MED ONE Stop: 05/02/20 06:53 Citric Acid/Sodium Citrate (Bicitra Solution) 30 ml PO ONETIME ONE Stop: 05/02/20 06:16 Cefazolin Sodium/Dextrose 1 gm (/ Premix) 50 mls @ 100 mls/hr IV ONETIME ONE Stop: 05/02/20 06:44 Sodium Chloride (Normal Saline) Confirm Administered Dose 20 mls @ as directed .ROUTE .STK-MED ONE Stop: 05/02/20 06:53 Ketorolac Tromethamine (Toradol) Confirm Administered Dose 30 mg .ROUTE .STK-MED ONE Stop: 05/02/20 06:53 Morphine Sulfate (Duramorph Pf) Confirm Administered Dose 10 mg .ROUTE .STK-MED ONE Stop: 05/02/20 06:53 Ondansetron HCl (Zofran) Confirm Administered Dose 4 mg .ROUTE .STK-MED ONE Stop: 05/02/20 06:53 Oxytocin (Pitocin) Confirm Administered Dose 20 unit .ROUTE .STK-MED ONE Stop: 05/02/20 06:53 Phenylephrine HCl (Carlos-Synephrine) Confirm Administered Dose 10 mg .ROUTE .STK- MED ONE Stop: 05/02/20 06:53 - Exam General: Alert, Oriented Neck: Supple Lungs: Normal Respiratory Effort Cardiovascular: Regular Rate, Regular Rhythm GI/Abdominal Exam: Soft, Non-Tender (Female) Exam: Normal External Exam Extremities: Normal Inspection Skin: Intact Psy/Mental Status: Alert, Normal Affect, Normal Mood - Problem List & Annotations (1) Term delivered SNOMED Code(s): 61547046, 729063325 Code(s): O80 - ENCOUNTER FOR FULL-TERM UNCOMPLICATED DELIVERY Status: Acute Priority: High Current Visit: Yes (2) S/P repeat low transverse SNOMED Code(s): 401411344, 83081239, 092565078, 080287671, 632471252 Code(s): Z98.891 - HISTORY OF UTERINE SCAR FROM PREVIOUS SURGERY Status: Acute Priority: High Current Visit: Yes - Problem List Review Problem List Initiated/Reviewed/Updated: Yes - My Orders Last 24 Hours: My Active Orders 05/02/20 12:54 Patient Status [ADT] Routine Ambulate [RC] PER UNIT ROUTINE Communication Order [RC] PER UNIT ROUTINE Communication Order [RC] Per Unit Routine May Shower [RC] ASDIRECTED RT Incentive Spirometry [RC] Q2HWA Vital Signs [RC] PER UNIT ROUTINE Acetaminophen/oxyCODONE [Percocet 325-5 MG] 1 tab PO Q4H PRN Acetaminophen/oxyCODONE [Percocet 325-5 MG] 2 tab PO Q4H PRN Ibuprofen [Motrin] 800 mg PO Q8H PRN Lanolin [Lansinoh HPA] See Dose Instructions TOP ASDIRECTED PRN Methylergonovine [Methergine] 0.2 mg IM ONETIME PRN Ondansetron [Zofran] 4 mg IVPUSH Q4H PRN Oxytocin [Pitocin] 10 unit IM ASDIRECTED PRN Tranexamic Acid [Cyklokapron] 1,000 mg Sodium Chloride 0.9% [Normal Saline] 100 ml IV ONETIME bisacodyL [Dulcolax] 10 mg RECTAL ONETIME PRN diphenhydrAMINE [Benadryl] 25 mg IVPUSH Q6H PRN miSOPROStoL [Cytotec] 1,000 mcg RECTAL ONETIME PRN Assess Lochia [WOMSER] Per Unit Routine Assess Uterine Involution [WOMSER] Per Unit Routine Breast Pump [WOMSER] Per Unit Routine Sequential Compression Device [OM.PC] Per Unit Routine 05/02/20 12:55 Communication Order [RC] PER UNIT ROUTINE Peripheral IV Discontinue [OM.PC] Routine 05/02/20 12:56 Antiembolic Devices [RC] PER UNIT ROUTINE 05/02/20 13:00 Ketorolac [Toradol] 30 mg IVPUSH Q6H Lactated Ringers @ 125 MLS/HR(1000ml) Lactated Ringers [Ringers, Lactated] 1,000 ml IV ASDIRECTED Oxytocin/Lactated Ringers [Pitocin in LR 30 Units/500 ML] 30 unit in 500 ml IV TITRATE 05/02/20 21:00 Docusate Sodium [Colace] 100 mg PO BID 05/03/20 05:11 HEMOGLOBIN/HEMATOCRIT,HH [HEME] Timed - Plan Plan:: S/P repeat low transverse . Delivery uncomplicated. orders placed. care per unit routine.
--- NOTE | 2020-05-02 13:53 | PCM.POSTAN ---
POST ANESTHESIA ASSESSMENT - MENTAL STATUS Mental Status: Alert, Oriented - VITAL SIGNS Vital Signs: Last Vital Signs Temp 96.8 F L 05/02/20 12:27 Pulse 58 L 05/02/20 13:07 Resp 21 H 05/02/20 13:07 BP 117/78 05/02/20 13:07 Pulse Ox 96 05/02/20 13:07 - RESPIRATORY Respiratory Status: Respiratory Rate WNL, Airway Patent, O2 Saturation Stable - CARDIOVASCULAR CV Status: Pulse Rate WNL, Blood Pressure Stable - GASTROINTESTINAL GI Status: No Symptoms - POST OP HYDRATION Hydration Status: Adequate & Stable
[2020-05-02] MEDS ORDERED: Octyl 2-Cyanoacrylate 1 Tube ONE (14:28)
[2020-05-02] MEDS ORDERED: buPROPion 100 MG Tab PO ONE (14:44)
[2020-05-02] MEDS: Ketorolac 30 MG/ML SDV IVPUSH SCH (18:15)
[2020-05-03] MEDS: Ketorolac 30 MG/ML SDV IVPUSH SCH ×4 (00:35→18:26)
[2020-05-03] MEDS: Docusate Sodium 100 MG Cap PO SCH ×4 (00:36→21:06)
--- NOTE | 2020-05-03 07:27 | PCM48HPAN ---
Post Anesthesia Note - EVALUATION WITHIN 48HRS OF ANESTHETIC Vital Signs in Normal Range: Yes Patient Participated in Evaluation: Yes Respiratory Function Stable: Yes Airway Patent: Yes Cardiovascular Function Stable: Yes Hydration Status Stable: Yes Pain Control Satisfactory: Yes Nausea and Vomiting Control Satisfactory: Yes Mental Status Recovered: Yes Vital Signs: Last Vital Signs Temp 36.3 C 05/03/20 04:44 Pulse 86 05/03/20 07:01 Resp 17 05/03/20 07:01 BP 109/65 05/03/20 04:44 Pulse Ox 95 05/03/20 07:01
[2020-05-03] MEDS: buPROPion 100 MG Tab PO SCH (08:53)
--- NOTE | 2020-05-03 10:53 | PCM.PNPP ---
- General Info Date of Service: 05/03/20 Functional Status: Reports: Pain Controlled - Review of Systems General: Reports: No Symptoms HEENT: Reports: No Symptoms Pulmonary: Reports: No Symptoms Cardiovascular: Reports: No Symptoms Gastrointestinal: Reports: No Symptoms Genitourinary: Reports: No Symptoms Musculoskeletal: Reports: No Symptoms Skin: Reports: No Symptoms Neurological: Reports: No Symptoms Psychiatric: Reports: No Symptoms - General Info Date of Service: 05/03/20 - Patient Data Vital Signs - Most Recent: Last Vital Signs Temp 36.7 C 05/03/20 08:00 Pulse 84 05/03/20 10:00 Resp 15 05/03/20 10:00 BP 114/72 05/03/20 08:00 Pulse Ox 100 05/03/20 10:00 Weight - Most Recent: 56.699 kg I&O - Last 24 Hours: Intake & Output 05/02/20 05/03/20 05/03/20 22:59 06:59 14:59 Output Total 250 500 Balance -250 -500 Lab Results - Last 24 Hours: Laboratory Results - last 24 hr 05/02/20 05/02/20 05/03/20 Range/Units 06:35 06:35 05:43 Hgb 10.1 L (12.0-16.0) g/dL Hct 30.9 L (36.0-46.0) % Blood Type O POSITIVE Antibody Screen POSITIVE Antibody Identification Anti-c Crossmatch See Detail Med Orders - Current: Current Medications Bisacodyl (Dulcolax) 10 mg RECTAL ONETIME PRN PRN Reason: Constipation Bupropion HCl (Wellbutrin) 100 mg PO DAILY [facility] Last Admin: 05/03/20 08:53 Dose: 100 mg Documented by: Diphenhydramine HCl (Benadryl) 25 mg IVPUSH Q6H PRN PRN Reason: Itching or Nausea Last Admin: 05/02/20 20:10 Dose: 25 mg Documented by: Docusate Sodium (Colace) 100 mg PO BID [facility] Last Admin: 05/03/20 08:53 Dose: 100 mg Documented by: Emollient Ointment (Lansinoh Hpa) 0 gm TOP ASDIRECTED PRN PRN Reason: Sore Nipples Oxytocin/Sodium Chloride (Oxytocin 30 Unit/500 Ml-Ns) 30 unit in 500 mls @ 250 mls/hr IV TITRATE [facility] Lactated Ringer's (Ringers, Lactated) 1,000 mls @ 500 mls/hr IV BOLUS [facility] Last Admin: 05/02/20 08:39 Dose: 250 mls/hr Documented by: Lactated Ringer's (Ringers, Lactated) 1,000 mls @ 125 mls/hr IV ASDIRECTED [facility] Last Admin: 05/02/20 13:54 Dose: 125 mls/hr Documented by: Oxytocin/Lactated Ringer's (Pitocin In Lr 30 Units/500 Ml) 30 unit in 500 mls @ 2 mls/hr IV TITRATE [facility]; Protocol Tranexamic Acid 1,000 mg/ (Sodium Chloride) 110 mls @ 660 mls/hr IV ONETIME PRN PRN Reason: Bleeding Ibuprofen (Motrin) 800 mg PO Q8H PRN PRN Reason: mild pain or fever Ketorolac Tromethamine (Toradol) 30 mg IVPUSH Q6H [facility] Stop: 05/03/20 18:16 Last Admin: 05/03/20 06:32 Dose: 30 mg Documented by: Methylergonovine Maleate (Methergine) 0.2 mg IM ONETIME PRN PRN Reason: Excessive Vaginal Bleeding Misoprostol (Cytotec) 1,000 mcg RECTAL ONETIME PRN PRN Reason: excessive bleeding Ondansetron HCl (Zofran Odt) 4 mg PO Q6H PRN PRN Reason: Nausea/Vomiting Ondansetron HCl (Zofran) 4 mg IVPUSH Q4H PRN PRN Reason: Nausea/Vomiting Oxycodone/Acetaminophen (Percocet 325-5 Mg) 1 tab PO Q4H PRN PRN Reason: Pain (moderate 4-6) Oxycodone/Acetaminophen (Percocet 325-5 Mg) 2 tab PO Q4H PRN PRN Reason: Pain (moderate 4-6) Oxytocin (Pitocin) 10 unit IM ASDIRECTED PRN PRN Reason: Excessive Vaginal Bleeding Sodium Chloride (Saline Flush) 10 ml FLUSH ASDIRECTED PRN PRN Reason: Keep Vein Open Sodium Chloride (Saline Flush) 2.5 ml FLUSH ASDIRECTED PRN PRN Reason: Keep Vein Open Sodium Chloride (Normal Saline) 10 ml IV ASDIRECTED PRN PRN Reason: IV Use Discontinued Medications Bupropion HCl (Wellbutrin) 100 mg PO ONETIME ONE Stop: 05/02/20 14:45 Last Admin: 05/02/20 15:40 Dose: 100 mg Documented by: Cefazolin Sodium (Ancef) Confirm Administered Dose 1 gm .ROUTE .STK-MED ONE Stop: 05/02/20 06:53 Citric Acid/Sodium Citrate (Bicitra Solution) 30 ml PO ONETIME ONE Stop: 05/02/20 06:16 Cefazolin Sodium/Dextrose 1 gm (/ Premix) 50 mls @ 100 mls/hr IV ONETIME ONE Stop: 05/02/20 06:44 Sodium Chloride (Normal Saline) Confirm Administered Dose 20 mls @ as directed .ROUTE .STK-MED ONE Stop: 05/02/20 06:53 Ketorolac Tromethamine (Toradol) Confirm Administered Dose 30 mg .ROUTE .STK-MED ONE Stop: 05/02/20 06:53 Ketorolac Tromethamine (Toradol) 30 mg IVPUSH Q6H [place] Stop: 05/03/20 13:01 Morphine Sulfate (Duramorph Pf) Confirm Administered Dose 10 mg .ROUTE .STK-MED ONE Stop: 05/02/20 06:53 Octyl Cyanoacrylate (Dermabond Advance) Confirm Administered Dose 1 applic .ROUTE .STK-MED ONE Stop: 05/02/20 14:29 Ondansetron HCl (Zofran) Confirm Administered Dose 4 mg .ROUTE .STK-MED ONE Stop: 05/02/20 06:53 Oxytocin (Pitocin) Confirm Administered Dose 20 unit .ROUTE .STK-MED ONE Stop: 05/02/20 06:53 Phenylephrine HCl (Carlos-Synephrine) Confirm Administered Dose 10 mg .ROUTE .STK- MED ONE Stop: 05/02/20 06:53 - Infant Interaction Disposition, : [place] in Room with Family Interaction: Holding Infant Feeding: Attempted ; Nursed Fair/Poor Support Person: Friend - Recovery Exam Fundal Tone: Firm Fundal Level: 1 Fingerbreadths Below Umbilicus Fundal Placement: Midline Lochia Amount: Scant Lochia Color: Rubra/Red Perineum Description: Intact, Minimal Bruising/Swelling Episiotomy/Laceration: None Bladder Status: Indwelling Catheter in Place Urinary Elimination: Other (see below) Other Urinary Elimination, : due to void - Exam General: Alert, Oriented HEENT: Pupils Equal Neck: Supple Lungs: Clear to Auscultation, Normal Respiratory Effort Cardiovascular: Regular Rate, Regular Rhythm GI/Abdominal Exam: Normal Bowel Sounds, Soft, Non-Tender, No Organomegaly, No Distention, No Abnormal Bruit, No Mass, Pelvis Stable Extremities: Normal Inspection, Normal Range of Motion, Non-Tender, No Pedal Edema, Normal Capillary Refill Skin: Warm, Dry, Intact Wound/Incisions: Healing Well Neurological: No New Focal Deficit Psy/Mental Status: Alert, Normal Affect, Normal Mood - Problem List Review Problem List Initiated/Reviewed/Updated: Yes - My Orders Last 24 Hours: My Active Orders 05/03/20 09:00 buPROPion [Wellbutrin] 100 mg PO DAILY - Assessment Assessment:: S/P C/Section doing well. - Plan Plan:: S/P repeat low transverse . Delivery uncomplicated. orders placed. care per unit routine.
[2020-05-03] MEDS: Acetaminophen/oxyCODONE 325-5 MG Tab PO PRN ×2 (16:55→21:04)
[2020-05-03] MEDS: Ibuprofen 800 MG Tab PO PRN (18:44)
[2020-05-04] MEDS: Acetaminophen/oxyCODONE 325-5 MG Tab PO PRN ×3 (01:17→09:29)
[2020-05-04] MEDS: Ibuprofen 800 MG Tab PO PRN ×2 (02:47→11:11)
[2020-05-04] MEDS: buPROPion 100 MG Tab PO SCH (09:29)
[2020-05-04] MEDS: Docusate Sodium 100 MG Cap PO SCH (09:29)
--- NOTE | 2020-05-04 10:52 | PCM.DCSUM1 ---
Discharge Summary - Hospital Course Diagnosis: Stroke: No - Discharge Data Discharge Date: 05/04/20 Discharge Disposition: Home, Self-Care 01 Condition: Good - Referral to Home Health Primary Care Physician: PCP None - Patient Instructions Diet: Usual Diet as Tolerated Activity: As Tolerated Driving: Do Not Drive Showering/Bathing: May Shower - Discharge Plan Home Medications: Home Meds Pain Supplement Powder 1 dose PO TID 04/28/20 [History] Pnv No.95/Ferrous Fum/Folic AC [ Vitamin Tablet] 1 tab PO DAILY 04/28/20 [History] buPROPion [Wellbutrin] 100 mg PO DAILY 04/28/20 [History] - Discharge Summary/Plan Comment DC Time >30 min.: Yes - General Info Date of Service: 05/04/20 Functional Status: Reports: Pain Controlled - Review of Systems General: Reports: No Symptoms HEENT: Reports: No Symptoms Pulmonary: Reports: No Symptoms Cardiovascular: Reports: No Symptoms Gastrointestinal: Reports: No Symptoms Genitourinary: Reports: No Symptoms Musculoskeletal: Reports: No Symptoms Skin: Reports: No Symptoms Neurological: Reports: No Symptoms Psychiatric: Reports: No Symptoms - Patient Data Vitals - Most Recent: Last Vital Signs Temp 36.6 C 05/04/20 08:20 Pulse 89 05/04/20 08:20 Resp 16 05/04/20 08:20 BP 123/83 05/04/20 08:20 Pulse Ox 97 05/04/20 08:20 Weight - Most Recent: 56.699 kg Med Orders - Current: Current Medications Bisacodyl (Dulcolax) 10 mg RECTAL ONETIME PRN PRN Reason: Constipation Bupropion HCl (Wellbutrin) 100 mg PO DAILY [facility] Last Admin: 05/04/20 09:29 Dose: 100 mg Documented by: Diphenhydramine HCl (Benadryl) 25 mg IVPUSH Q6H PRN PRN Reason: Itching or Nausea Last Admin: 05/02/20 20:10 Dose: 25 mg Documented by: Docusate Sodium (Colace) 100 mg PO BID [facility] Last Admin: 05/04/20 09:29 Dose: 100 mg Documented by: Emollient Ointment (Lansinoh Hpa) 0 gm TOP ASDIRECTED PRN PRN Reason: Sore Nipples Oxytocin/Sodium Chloride (Oxytocin 30 Unit/500 Ml-Ns) 30 unit in 500 mls @ 250 mls/hr IV TITRATE [place] Lactated Ringer's (Ringers, Lactated) 1,000 mls @ 500 mls/hr IV BOLUS [facility] Last Admin: 05/02/20 08:39 Dose: 250 mls/hr Documented by: Lactated Ringer's (Ringers, Lactated) 1,000 mls @ 125 mls/hr IV ASDIRECTED [place] Last Admin: 05/02/20 13:54 Dose: 125 mls/hr Documented by: Oxytocin/Lactated Ringer's (Pitocin In Lr 30 Units/500 Ml) 30 unit in 500 mls @ 2 mls/hr IV TITRATE [place]; Protocol Tranexamic Acid 1,000 mg/ (Sodium Chloride) 110 mls @ 660 mls/hr IV ONETIME PRN PRN Reason: Bleeding Ibuprofen (Motrin) 800 mg PO Q8H PRN PRN Reason: mild pain or fever Last Admin: 05/04/20 02:47 Dose: 800 mg Documented by: Methylergonovine Maleate (Methergine) 0.2 mg IM ONETIME PRN PRN Reason: Excessive Vaginal Bleeding Misoprostol (Cytotec) 1,000 mcg RECTAL ONETIME PRN PRN Reason: excessive bleeding Ondansetron HCl (Zofran Odt) 4 mg PO Q6H PRN PRN Reason: Nausea/Vomiting Ondansetron HCl (Zofran) 4 mg IVPUSH Q4H PRN PRN Reason: Nausea/Vomiting Oxycodone/Acetaminophen (Percocet 325-5 Mg) 1 tab PO Q4H PRN PRN Reason: Pain (moderate 4-6) Last Admin: 05/03/20 12:50 Dose: 1 tab Documented by: Oxycodone/Acetaminophen (Percocet 325-5 Mg) 2 tab PO Q4H PRN PRN Reason: Pain (moderate 4-6) Last Admin: 05/04/20 09:29 Dose: 2 tab Documented by: Oxytocin (Pitocin) 10 unit IM ASDIRECTED PRN PRN Reason: Excessive Vaginal Bleeding Sodium Chloride (Saline Flush) 10 ml FLUSH ASDIRECTED PRN PRN Reason: Keep Vein Open Sodium Chloride (Saline Flush) 2.5 ml FLUSH ASDIRECTED PRN PRN Reason: Keep Vein Open Sodium Chloride (Normal Saline) 10 ml IV ASDIRECTED PRN PRN Reason: IV Use Discontinued Medications Bupropion HCl (Wellbutrin) 100 mg PO ONETIME ONE Stop: 05/02/20 14:45 Last Admin: 05/02/20 15:40 Dose: 100 mg Documented by: Cefazolin Sodium (Ancef) Confirm Administered Dose 1 gm .ROUTE .STK-MED ONE Stop: 05/02/20 06:53 Citric Acid/Sodium Citrate (Bicitra Solution) 30 ml PO ONETIME ONE Stop: 05/02/20 06:16 Last Admin: 05/03/20 21:44 Dose: Not Given Documented by: Cefazolin Sodium/Dextrose 1 gm (/ Premix) 50 mls @ 100 mls/hr IV ONETIME ONE Stop: 05/02/20 06:44 Last Admin: 05/03/20 21:44 Dose: Not Given Documented by: Sodium Chloride (Normal Saline) Confirm Administered Dose 20 mls @ as directed .ROUTE .STK-MED ONE Stop: 05/02/20 06:53 Ketorolac Tromethamine (Toradol) Confirm Administered Dose 30 mg .ROUTE .STK-MED ONE Stop: 05/02/20 06:53 Ketorolac Tromethamine (Toradol) 30 mg IVPUSH Q6H [facility] Stop: 05/03/20 13:01 Ketorolac Tromethamine (Toradol) 30 mg IVPUSH Q6H [facility] Stop: 05/03/20 18:16 Last Admin: 05/03/20 18:26 Dose: Not Given Documented by: Morphine Sulfate (Duramorph Pf) Confirm Administered Dose 10 mg .ROUTE .STK-MED ONE Stop: 05/02/20 06:53 Octyl Cyanoacrylate (Dermabond Advance) Confirm Administered Dose 1 applic .ROUTE .STK-MED ONE Stop: 05/02/20 14:29 Ondansetron HCl (Zofran) Confirm Administered Dose 4 mg .ROUTE .STK-MED ONE Stop: 05/02/20 06:53 Oxytocin (Pitocin) Confirm Administered Dose 20 unit .ROUTE .STK-MED ONE Stop: 05/02/20 06:53 Phenylephrine HCl (Carlos-Synephrine) Confirm Administered Dose 10 mg .ROUTE .STK- MED ONE Stop: 05/02/20 06:53 - Exam General: Reports: Alert, Oriented HEENT: Reports: Pupils Equal, Pupils Reactive, EOMI, Mucous Membr. Moist/[place] Neck: Reports: Supple Lungs: Reports: Clear to Auscultation, Normal Respiratory Effort Cardiovascular: Reports: Regular Rate, Regular Rhythm GI/Abdominal Exam: Normal Bowel Sounds, Soft, Non-Tender, No Organomegaly, No Distention, No Abnormal Bruit, No Mass, Pelvis Stable (Female) Exam: Normal External Exam, Normal Speculum Exam, Normal Bimanual Exam Rectal (Female) Exam: Normal Exam, Normal Rectal Tone Back Exam: Reports: Normal Inspection, Full Range of Motion Extremities: Normal Inspection, Normal Range of Motion, Non-Tender, No Pedal Edema, Normal Capillary Refill Skin: Reports: Warm, Dry, Intact Wound/Incisions: Reports: Healing Well Neurological: Reports: No New Focal Deficit Psy/Mental Status: Reports: Alert, Normal Affect, Normal Mood
--- NOTE | 2020-05-05 10:21 | OR ---
SURGEON: Jenn Duarte MD DATE OF PROCEDURE: 05/02/2020 INDICATION FOR SURGERY: Prior , term . PREOPERATIVE DIAGNOSES: Term , history of prior x2. POSTOPERATIVE DIAGNOSIS: Term , history of prior x2. PROCEDURE PERFORMED: section. PRIMARY SURGEON: Jenn Duarte MD. DYSLEXIA TEACHER: Jaya Meng MD. ANESTHESIA: Spinal. ESTIMATED BLOOD LOSS: 200 mL. URINE OUTPUT: Appropriate. DRAIN AND PACK: Betancur catheter draining clear urine. SPECIMEN: None. DELIVERY DETAILS: Baby boy. score of 9 and 9. Weight 6 pounds 12 ounces. Placenta delivered spontaneously. MATERNAL DELIVERY COMPLICATIONS: None. COMPLICATIONS: None. TECHNIQUE: Yesenia Feldman was taken to the operating room. She was then transferred to the operating table and placed in the dorsal supine position with a leftward tilt. After adequate anesthesia was confirmed, she was prepped and draped in the usual sterile fashion. A time-out was completed. With IV fluid running and Betancur catheter draining, a Pfannenstiel skin incision was made. The incision was carried down with the Bovie cautery through the subcutaneous tissue to the underlying rectus fascia. The rectus fascia was incised in the middle and extended laterally with Chavez scissors. The underlying rectus muscles were dissected off sharply and bluntly. The rectus muscles were then in the midline and the parietal peritoneum was opened. A bladder blade and Marks retractor were placed. The lower uterine segment was identified in the surgical field and was incised in a transverse fashion. The incision was extended laterally with a traction. The infant's vertex was delivered atraumatically followed by the remainder of the infant. The cord was clamped and cut, and the was handed off to the pediatric staff. Cord blood was collected. The placenta was delivered spontaneously. The uterus was then cleared of all clots and debris and was reapproximated in a running locked stitch fashion utilizing 0 Vicryl. A second running stitch was performed utilizing another 0 Vicryl. Hemostasis was excellent. The gutter was cleaned of all clots and debris. All operating sites were examined and noted to be hemostatic. The bladder blade and Marks were removed. The peritoneum was closed with a running stitch fashion utilizing a 3-0 Vicryl. The rectus fascia was reapproximated with a PDS in running stitch fashion. The skin was closed with 4-0 Monocryl in a subcuticular fashion. All sponges, needle, and instrument counts were correct per the OR staff. The patient was taken to the recovery room in a stable condition. The patient had received 2 g of Ancef prior to the procedure. AGUILAR GREENBERG /[id number]
== END 2020-05-04 12:15 | disposition home or self-care (01) | DRG 788 ==
LOC: MW.OB 06:04
PROVIDERS: ADMIT Obstetrics & Gynecology; ATTEND Obstetrics & Gynecology
PROC: 10D00Z1 Extraction of Products of Conception, Low, Open Approach (ICD-10-PCS; principal; 2020-05-02)
DX: O34.211 Maternal care for low transverse scar from previous cesarean delivery (principal); Z3A.38 38 weeks gestation of pregnancy; Z37.0 Single live birth; Z87.891 Personal history of nicotine dependence; F43.10 Post-traumatic stress disorder, unspecified; O99.344 Other mental disorders complicating childbirth
CPT/HCPCS: 01961; 36415; 59025; 85014; 85018; 85027; 86592; 86850; 86870; 86900; 86901; 86902; 86920; 86921; 86922; A9270-GY; J0690; J1200; J1885; J2270; J2370; J2405; J2590; J7120

== ENCOUNTER 2020-10-24 22:32 | Emergency (ER) | payer MEDICAID ==
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
== END 2020-10-24 23:13 | disposition home or self-care (01) ==
LOC: MW.ED 22:32
DX: H60.502 Unspecified acute noninfective otitis externa, left ear (principal); L73.9 Follicular disorder, unspecified
CPT/HCPCS: 10060; 99282-25; 99283

== ENCOUNTER 2023-10-11 17:12 | Emergency (ER) | payer MEDICAID ==
[2023-10-11] MEDS: Sodium Chloride 0.9% 1,000 ML IV ONE (17:33)
[2023-10-11] MEDS: Sodium Chloride 0.9% 2.5 ML Syringe FLUSH PRN (17:39)
[2023-10-11] MEDS: Sodium Chloride 0.9% 10 ML Syringe FLUSH PRN (17:41)
[2023-10-11 17:43] LABS: BASOPHILS ABSOLUTE AUTO 0.04 K/uL (0.00-0.20); BASOPHILS PERCENT AUTO 0.3 % (0.0-1.0); EOSINOPHILS ABSOLUTE AUTO 0.09 K/uL (0.00-0.45); EOSINOPHILS PERCENT AUTO 0.7 % (0.0-6.0); HEMATOCRIT 39.7 % (37.0-47.0); HEMOGLOBIN 13.4 g/dL (12.0-16.0); IMMATURE GRAN ABSOLUTE AUTO 0.05 K/uL (0.00-0.05); IMMATURE GRAN PERCENT AUTO 0.4 % (0.0-0.4); LYMPHOCYTES ABSOLUTE AUTO 2.76 K/uL (1.00-4.80); LYMPHOCYTES PERCENT AUTO 20.2 % (24.0-44.0); MEAN CORPUSCULAR HEMOGLOBIN 29.4 pg (28.0-32.0); MEAN CORPUSCULAR HGB CONC 33.8 g/dL (32.0-36.0); MEAN CORPUSCULAR VOLUME 87.1 fL (83.0-99.0); MEAN PLATELET VOLUME 9.6 fL (9.4-12.3); MONOCYTES ABSOLUTE AUTO 0.43 K/uL (0.00-0.80); MONOCYTES PERCENT AUTO 3.1 % (0.0-8.0); NEUTROPHILS ABSOLUTE AUTO 10.32 K/uL (1.80-7.70); NEUTROPHILS PERCENT AUTO 75.3 % (41.0-71.0); PLATELET COUNT,PLT 213 K/uL (150-400); RED BLOOD CELL COUNT 4.56 M/uL (4.10-5.30); WHITE BLOOD CELL COUNT,WBC 13.69 K/uL (3.9-11.3)
[2023-10-11 18:18] LABS: ALANINE AMINOTRANSFERASE,ALT 24 IU/L (14-63); ALBUMIN 3.6 g/dL (3.4-5.0); ALKALINE PHOSPHATASE 72 U/L (46-116); ASPARTATE AMNIOTRANSFERASE,AST 21 IU/L (15-37); BILIRUBIN TOTAL 0.3 mg/dL (0.2-1.0); BLOOD UREA NITROGEN,BUN 13 mg/dL (7.0-18.0); CALCIUM 8.6 mg/dL (8.5-10.1); CARBON DIOXIDE,CO2 25.7 mmol/L (21.0-32.0); CHLORIDE,CL 103 mmol/L (98-107); CREATININE 0.7 mg/dL (0.6-1.0); EST CRCL DRUG DOSING (CG) 91.91 mL/min; ESTIMATED GFR 115 mL/min (>60); GLUCOSE RANDOM 102 mg/dL (74-106); HCG QUANTITATIVE < 1.0 mIU/mL; POTASSIUM,K 3.3 mmol/L (3.5-5.1); PROTEIN TOTAL,TP 7.2 g/dL (6.4-8.2); SODIUM,NA 138 mmol/L (136-145)
[2023-10-11] MEDS: Iopamidol 755 MG/ML 500 ML Multipack Bottle IVPUSH STA (18:41)
[2023-10-11 19:28] LABS: APPEARANCE,URINE CLEAR; BILIRUBIN,URINE NEGATIVE (NEGATIVE); COLOR,URINE YELLOW; GLUCOSE,URINE NEGATIVE (NEGATIVE); KETONES,URINE NEGATIVE (NEGATIVE); LEUKOCYTE ESTERASE,URINE NEGATIVE (NEGATIVE); NITRITE,URINE NEGATIVE (NEGATIVE); OCCULT BLOOD,URINE NEGATIVE (NEGATIVE); PROTEIN,URINE NEGATIVE (NEGATIVE)
== END 2023-10-11 20:30 | disposition home or self-care (01) ==
LOC: MW.ED 17:12
DX: R10.2 Pelvic and perineal pain (principal); Z79.899 Other long term (current) drug therapy; Z88.1 Allergy status to other antibiotic agents; Z75.8 Other problems related to medical facilities and other health care
CPT/HCPCS: 36415; 74177; 76856; 80053; 81003; 84702; 84703; 85025; 96360; 99284; J3490; J7030; Q9967